=== PATIENT | female | born 1960 | race African-American/Black ===

== ENCOUNTER 2017-09-05 20:22 | Inpatient (IN) | payer OTHER ==
[2017-09-05 21:02] VITALS: BMI 19.8
[2017-09-05] MEDS ORDERED: MELATONIN 5 MG TABLETS PO PRN (22:00)
--- NOTE | 2017-09-05 22:27 | HP ---
CIWA Score - CIWA Score Nausea/Vomitin Muscle Tremors: 4-Moderate,w/Arms Extend Anxiety: 4-Mod. Anxious/Guarded Agitation: 4-Moderately Restless Paroxysmal Sweats: 3 Orientation: 3-Disoriented Date>2 days Tacttile Disturbances: 3-Moderate Itch/Numb/Burn Auditory Disturbances: 1-Very Mild Visual Disturbances: 0-None Headache: 0-None Present CIWA-Ar Total Score: 25 Admission ROS S - HPI Chief Complaint: C/O WITHDRAWAL SX. SEEKING DETOX FOR ALCOHOL DEPENDENCE. Allergies/Adverse Reactions: Allergies Allergy/AdvReac Type Severity Reaction Status Date / Time No Known Allergies Allergy Verified 09/05/17 22:23 History of Present Illness: 57 Y.O. FEMALE WITH LONG HX/O ALCOHOLISM AND CRACK/COCAINE DEPENDENCE HERE FOR DETOX. CLIENT IS KNOWN TO PREVIOUS DETOX PROGRAM. REPORTS LAST ATTEMPT YEARS AGO. REFERRED BY A FRIEND. REPORTS LONGEST CLEAN TIME 8 YEARS. PMHX: EMPHYSEMA, COPD, BACK INJURY PSYCH: SCHIZOPHRENIA, BIPOLAR Exam Limitations: No Limitations - Ebola screening Have you traveled outside of the country in the last 21 days: No (N) Have you had contact with anyone from an Ebola affected area: No Have you been sick,other than usual withdrawal symptoms: No Do you have a fever: No - Review of Systems Constitutional: Chills, Loss of Appetite, Malaise, Night Sweats, Changes in sleep, Unintentional Wgt. Loss EENT: reports: Dental Problems (DENTURES) Respiratory: reports: Shortness of Breath Cardiac: reports: No Symptoms Reported GI: reports: Nausea, Poor Appetite, Poor Fluid Intake : reports: No Symptoms Reported Musculoskeletal: reports: Back Pain Integumentary: reports: No Symptoms Reported Neuro: reports: No Symptoms reported Endocrine: reports: No Symptoms Reported Hematology: reports: No Symptoms Reported Psychiatric: reports: Anxious, Depressed Other Systems: Reviewed and Negative Patient History - Patient Medical History Hx Anemia: No Hx Asthma: No Hx Chronic Obstructive Pulmonary Disease (COPD): Yes (EMPHYSEMA) Hx Cancer: No Hx Cardiac Disorders: No Hx Congestive Heart Failure: No Hx Hypertension: No Hx Hypercholesterolemia: No Hx Pacemaker: No HX Cerebrovascular Accident: No Hx Seizures: No Hx Dementia: No Hx Diabetes: No Hx Gastrointestinal Disorders: No Hx Liver Disease: No Hx Genitourinary Disorders: No Hx Sexually Transmitted Disorders: No Hx Renal Disease (ESRD): No Hx Thyroid Disease: No Hx Human Immunodeficiency Virus (HIV): No Hx Hepatitis C: No Hx Depression: Yes Hx Suicide Attempt: Yes (8 YEARS AGO ATEMPTED TO JUMP OUT THE WINDOW) Hx Bipolar Disorder: Yes (MED MGMT) Hx Schizophrenia: Yes (MED MGMT) - Patient Surgical History Past Surgical History: No - PPD History Previous Implant?: Yes Documented Results: Negative w/o proof Implanted On Prior R Admission?: No PPD to be Administered?: Yes - Reproductive History Patient is a Female of Child Bearing Age (11 -55 yrs old): No [place] [facility] [place] - Smoking Cessation Smoking history: Former smoker Have you smoked in the past 12 months: No Hx Chewing Tobacco Use: No Initiated information on smoking cessation: No - Substance & Tx. History Hx Alcohol Use: Yes Hx Substance Use: Yes Substance Use Type: Alcohol, Cocaine Hx Substance Use Treatment: Yes (DOES NOT RECALL) - Substances Abused VODKA Route: Oral Frequency: Daily Amount used: 1 PINT Age of first use: 13 Date of Last Use: 09/05/17 CRACK/COCAINE Route: Smoking Frequency: Daily Amount used: $200 Age of first use: 54 Date of Last Use: 09/05/17 Family Disease History - Family Disease History Family Disease History: Other: Father (DRUGS/ALCOHOL), Brother (MENTAL HEALTH), Sister (MENTAL HEALTH) Admission Physical Exam S - Vital Signs Vital Signs: Vital Signs - 24 hr 09/05/17 20:59 Temperature 97.8 F Pulse Rate 77 Respiratory 18 Rate Blood Pressure 122/85 - Physical General Appearance: Yes: Appropriately Dressed, Moderate Distress, Tremorous, Irritable HEENTM: Yes: EOMI, Normocephalic, Pharynx Normal, Other (MISSIING TEETH TOP DENTURES) Respiratory: Yes: Chest Non-Tender, No Respiratory Distress, Wheezing (CLEARED WITH COUGH) Neck: Yes: No masses,lesions,Nodules, Supple, Trachea in good position Breast: Yes: Breast Exam Deferred Cardiology: Yes: Regular Rhythm, Regular Rate, S1, S2 Abdominal: Yes: Normal Bowel Sounds, Non Tender, Soft Genitourinary: Yes: Within Normal Limits Back: Yes: Normal Inspection Musculoskeletal: Yes: full range of Motion, Gait Steady Extremities: Yes: Normal Capillary Refill, Normal Range of Motion, Non-Tender, Tremors Neurological: Yes: Alert, Motor Strength 5/5, Disoriented (TO DATE) Integumentary: Yes: Dry, Cold Lymphatic: Yes: Within Normal Limits - Diagnostic (1) Alcohol dependence with uncomplicated withdrawal Current Visit: Yes Status: Acute (2) Cocaine dependence, uncomplicated Current Visit: Yes Status: Chronic (3) COPD (chronic obstructive pulmonary disease) with emphysema Current Visit: Yes Status: Chronic Qualifiers: Emphysema type: unspecified Qualified Code(s): J43.9 - Emphysema, unspecified (4) Former cigarette smoker Current Visit: Yes Status: Suspected (5) Drug-induced mood disorder Current Visit: Yes Status: Suspected Cleared for Admission S - Detox or Rehab [facility] Level of Care: Medically Managed Detox Regimen/Protocol: Librium Claeared for Rehab Admission: No S Breath Alcohol Content Breath Alcohol Content: 0 Urine Pregancy Test - Result Urine Test Results: Negative- NO Line Present Urine Drug Screen - Results Drug Screen Negative: No Urine Drug Screen Results: GUIDO-Cocaine
[2017-09-05] MEDS ORDERED: MAGNESIUM HYDROX 2400MG/30ML ORAL SUSPENSION 30 ML CUP PO PRN (22:33)
[2017-09-05] MEDS ORDERED: NICOTINE POLACRILEX 2 MG GUM BC PRN (22:33)
[2017-09-05] MEDS ORDERED: P-EPHED 60MG/TRIPROLIDI 2.5MG TABLET PO PRN (22:33)
[2017-09-05] MEDS ORDERED: IBUPROFEN 400 MG TABLET (FP) PO PRN (22:33)
[2017-09-05] MEDS ORDERED: MAG HYDROX/AL HYDROX/SIMETH 30 ML UNIT-DOSE CUP PO PRN (22:33)
[2017-09-05] MEDS ORDERED: LOPERAMIDE HCL 2 MG CAPSULE PO PRN (22:33)
[2017-09-05] MEDS ORDERED: guaiFENesin/D-METHORPHAN HB 10 ML UNIT-DOSE CUPS PO PRN (22:33)
[2017-09-05] MEDS ORDERED: MAGNESIUM CITRATE 300 ML BOTTLE PO PRN (22:33)
[2017-09-05] MEDS ORDERED: MENTHOL/PHENOL 1 EACH UD MM PRN (22:33)
[2017-09-05] MEDS ORDERED: chlordiazePOXIDE HCL 25 MG CAPSULE PO PRN (22:33)
[2017-09-05] MEDS ORDERED: ACETAMINOPHEN 325 MG TABLET (FP) PO PRN (22:33)
[2017-09-05] MEDS ORDERED: hydrOXYzine PAMOATE 50 MG CAPSULE (FP) PO PRN (22:33)
[2017-09-05] MEDS ORDERED: ALBUTEROL SO4 18 GM HFA INHALER IH PRN (22:37)
[2017-09-05] MEDS ORDERED: ALBUTEROL SO4 2.5/IPRATROPIUM 0.5 INH SOL 3 ML VIAL.NEB. NEB PRN (22:37)
[2017-09-06] MEDS: chlordiazePOXIDE HCL 25 MG CAPSULE PO SCH ×5 (04:40→22:16)
[2017-09-06] MEDS: BUDESONIDE/FORMETEROL FUMARATE 80/4.5 mcg INHALER IH SCH ×3 (04:40→22:15)
[2017-09-06 06:56] LABS: URINE APPEARANCE CLEAR; URINE BILIRUBIN NEGATIVE (<2.0 mg/dL); URINE COLOR LTYELLOW; URINE GLUCOSE (UA) NEGATIVE (NEGATIVE); URINE KETONE NEGATIVE (NEGATIVE); URINE LEUK ESTERASE NEGATIVE (NEGATIVE); URINE NITRITE NEGATIVE (NEGATIVE); URINE PROTEIN NEGATIVE (NEGATIVE); URINE UROBILINOGEN NEGATIVE mg/dL (0.2-1.0)
--- NOTE | 2017-09-06 09:56 | CONSULT ---
[facility] Psychiatric Consult - Data Date of interview: 09/06/17 Admission source: [facility] Identifying data: This is 57 years old female, single, living alone , on SSI benefits, with psychiatric hospitalization history, history of Schizophrenia, Bipolr Disorder, long history of Alcohol,and Crack dependence, currently intoxicate with withdrawal symptoms seeking for detox. Substance Abuse History: - Smoking Cessation. Smoking history: Former smoker. Have you smoked in the past 12 months: No. Hx Chewing Tobacco Use: No. Initiated information on smoking cessation: No. - Substance & Tx. History. Hx Alcohol Use: Yes. Hx Substance Use: Yes. Substance Use Type: Alcohol, Cocaine. Hx Substance Use Treatment: Yes (DOES NOT RECALL). - Substances Abused. VODKA. Route: Oral. Frequency: Daily. Amount used: 1 PINT. Age of first use: 13. Date of Last Use: 09/05/17. CRACK/COCAINE. Route: Smoking. Frequency: Daily. Amount used: $200. Age of first use: 54. Date of Last Use: 09/05/17 Medical History: COPD Psychiatric History: Ptient reports history of Schizophrenia with most recent psychiatric hospitalization at [facility] 2 weeks ago, reports taking prior to admission Risperdal IM injections with most recent injection last week , patient is poor historian, risperdal dosage is not confirmed. Physical/Sexual Abuse/Trauma History: Denies Additional Comment: Haldol 1mg po prn q4 for psychosis and agitation Mental Status Exam - Mental Status Exam Alert and Oriented to: Person Cognitive Function: Good Patient Appearance: Unkempt Mood: Suspicious, Apprehensive Affect: Labile Patient Behavior: Cooperative Speech Pattern: Slurred Voice Loudness: Mildly Soft/Quiet Thought Process: Goal Oriented Thought Disorder: Being Controlled Hallucinations: Denies Suicidal Ideation: Denies Homicidal Ideation: Denies Insight/Judgement: Fair Sleep: Difficulty falling asleep Appetite: Weight loss Muscle strength/Tone: Mild Hypotonicity Gait/Station: Shuffling Additional Comments: Haldol 1mg po prn q4 for psychosis and agitation Psychiatric Findings - Problem List ([place] 1, 2,3) (1) Schizophrenia Current Visit: Yes Status: Chronic (2) Alcohol dependence with uncomplicated withdrawal Current Visit: Yes Status: Acute (3) Cocaine dependence, uncomplicated Current Visit: Yes Status: Chronic (4) Drug-induced mood disorder Current Visit: Yes Status: Suspected - Initial Treatment Plan Initial Treatment Plan: Haldol 1mg po prn q4 for psychosis and agitation
[2017-09-06] MEDS: PRENATAL VITAMINS W/ FOLIC ACID TABLET (FP) PO SCH (10:08)
[2017-09-06 10:42] LABS: HEMATOCRIT 37.6 % (32.4-45.2); HEMOGLOBIN 12.5 GM/dL (10.7-15.3); MCH 32.8 pg (25.7-33.7); MCHC 33.2 g/dl (32.0-36.0); MEAN CELL VOLUME 98.9 fl (80-96); MEAN PLT VOLUME 8.6 fl (7.5-11.1); PLATELET COUNT 265 K/MM3 (134-434); RDW 14.3 % (11.6-15.6); WHITE BLOOD COUNT 9.2 K/mm3 (4.0-10.0)
[2017-09-06 10:49] LABS: CHLORIDE 109 mmol/L (98-107); SODIUM 143 mmol/L (136-145)
--- NOTE | 2017-09-06 11:16 | PN ---
S CIWA - CIWA Score Nausea/Vomitin-Mild Nausea/No Vomiting Muscle Tremors: 4-Moderate,w/Arms Extend Anxiety: 4-Mod. Anxious/Guarded Agitation: 4-Moderately Restless Paroxysmal Sweats: 1-Minimal Palms Moist Orientation: 1-Uncertain about Date Tacttile Disturbances: 2-Mild Itch/Numbness/Burn Auditory Disturbances: 0-None Visual Disturbances: 0-None Headache: 1-Very Mild CIWA-Ar Total Score: 18 BHS Progress Note (SOAP) Subjective: disoriented to time, sweat, tremor, anxiety, restlessness, trouble sleep at night Objective: 09/06/17 11:16 Vital Signs Temperature 97.9 F 09/06/17 10:18 Pulse Rate 69 09/06/17 10:18 Respiratory Rate 18 09/06/17 10:18 Blood Pressure 98/63 09/06/17 10:18 O2 Sat by Pulse Oximetry (%) Laboratory Tests 09/05/17 09/06/17 09/06/17 23:26 07:30 07:30 WBC 9.2 RBC 3.80 Hgb 12.5 Hct 37.6 MCV 98.9 H MCH 32.8 MCHC 33.2 RDW 14.3 Plt Count 265 MPV 8.6 Sodium 143 Potassium 4.0 Chloride 109 H Urine Color Ltyellow Urine Appearance Clear Urine pH 8.0 Ur Specific [place] 1.018 Urine Protein Negative Urine Glucose (UA) Negative Urine Ketones Negative Urine Blood Negative Urine Nitrite Negative Urine Bilirubin Negative Urine Urobilinogen Negative Ur Leukocyte Esterase Negative lab noted Assessment: 09/06/17 11:16 withdrawal sx 09/06/17 11:17 bipolar disorder Plan: continue detox psychiatric consultation aracely qureshi
[2017-09-06 11:21] LABS: ALBUMIN 3.4 g/dl (3.4-5.0); ALK PHOS 61 U/L (45-117); ANION GAP 7 (8-16); BILIRUBIN,TOTAL 0.6 mg/dL (0.2-1.0); BLOOD UREA NITROGEN 10 mg/dL (7-18); CALCIUM 8.8 mg/dL (8.5-10.1); CO2 27 mmol/L (21-32); CREATININE 0.9 mg/dL (0.55-1.02); GLUCOSE,RANDOM 82 mg/dL (74-106); SGOT/AST 13 U/L (15-37); SGPT/ALT 14 U/L (12-78); TOT PROT 6.8 g/dl (6.4-8.2)
--- NOTE | 2017-09-06 13:28 | EKG ---
Test Reason : Blood Pressure : / mmHG Vent. Rate : 072 BPM Atrial Rate : 072 BPM P-R Int : 168 ms QRS Dur : 086 ms QT Int : 408 ms P-R-T Axes : 060 089 082 degrees QTc Int : 446 ms NORMAL SINUS RHYTHM NORMAL ECG NO PREVIOUS ECGS AVAILABLE Confirmed by BEL HANSON, CRUZITO ([id number]) on 09/06/2017 1:27:36 PM Referred By: Confirmed By:CRUZITO STAPLES MD
[2017-09-06] MEDS: THIAMINE HCL 100 MG TABLET (FP) PO SCH (22:16)
[2017-09-06] MEDS: HALOPERIDOL 1 MG TABLET (FP) PO PRN (22:16)
[2017-09-07] MEDS: chlordiazePOXIDE HCL 25 MG CAPSULE PO SCH ×3 (05:58→17:36)
--- NOTE | 2017-09-07 10:12 | PN ---
[facility] CIWA - CIWA Score Nausea/Vomitin-Mild Nausea/No Vomiting Muscle Tremors: 4-Moderate,w/Arms Extend Anxiety: 4-Mod. Anxious/Guarded Agitation: 3 Paroxysmal Sweats: 1-Minimal Palms Moist Orientation: 0-Oriented Tacttile Disturbances: 1-Very Mild Itch/Numbness Auditory Disturbances: 0-None Visual Disturbances: 0-None Headache: 0-None Present CIWA-Ar Total Score: 14 BHS Progress Note (SOAP) Subjective: sweat tremor constipation and minimum food intake Objective: 09/07/17 10:16 Vital Signs Temperature 97.9 F 09/07/17 07:51 Pulse Rate 69 09/07/17 07:51 Respiratory Rate 18 09/07/17 07:51 Blood Pressure 144/87 09/07/17 07:51 O2 Sat by Pulse Oximetry (%) Laboratory Last Values WBC 9.2 K/mm3 (4.0-10.0) 09/06/17 07:30 RBC 3.80 M/mm3 (3.60-5.2) 09/06/17 07:30 Hgb 12.5 GM/dL (10.7-15.3) 09/06/17 07:30 Hct 37.6 % (32.4-45.2) 09/06/17 07:30 MCV 98.9 fl (80-96) H 09/06/17 07:30 MCH 32.8 pg (25.7-33.7) 09/06/17 07:30 MCHC 33.2 g/dl (32.0-36.0) 09/06/17 07:30 RDW 14.3 % (11.6-15.6) 09/06/17 07:30 Plt Count 265 K/MM3 (134-434) 09/06/17 07:30 MPV 8.6 fl (7.5-11.1) 09/06/17 07:30 Sodium 143 mmol/L (136-145) 09/06/17 07:30 Potassium 4.0 mmol/L (3.5-5.1) 09/06/17 07:30 Chloride 109 mmol/L (98-107) H 09/06/17 07:30 Carbon Dioxide 27 mmol/L (21-32) 09/06/17 07:30 Anion Gap 7 (8-16) L 09/06/17 07:30 BUN 10 mg/dL (7-18) 09/06/17 07:30 Creatinine 0.9 mg/dL (0.55-1.02) 09/06/17 07:30 Creat Clearance w eGFR > 60 (>60) 09/06/17 07:30 Random Glucose 82 mg/dL (74-106) 09/06/17 07:30 Calcium 8.8 mg/dL (8.5-10.1) 09/06/17 07:30 Total Bilirubin 0.6 mg/dL (0.2-1.0) 09/06/17 07:30 AST 13 U/L (15-37) L 09/06/17 07:30 ALT 14 U/L (12-78) 09/06/17 07:30 Alkaline Phosphatase 61 U/L (45-117) 09/06/17 07:30 Total Protein 6.8 g/dl (6.4-8.2) 09/06/17 07:30 Albumin 3.4 g/dl (3.4-5.0) 09/06/17 07:30 Urine Color Ltyellow 09/05/17 23:26 lab not Urine Appearance Clear 09/05/17 23: Urine pH 8.0 (5.0-8.0) 09/05/17 23:26 Ur Specific [place] 1.018 (1.001-1.035) 09/05/17 23:26 Urine Protein Negative (NEGATIVE) 09/05/17 23:26 Urine Glucose (UA) Negative (NEGATIVE) 09/05/17 23:26 Urine Ketones Negative (NEGATIVE) 09/05/17 23: Urine Blood Negative (NEGATIVE) 09/05/17 23:26 Urine Nitrite Negative (NEGATIVE) 09/05/17 23: Urine Bilirubin Negative (<2.0 mg/dL) 09/05/17 23: Urine Urobilinogen Negative mg/dL (0.2-1.0) 09/05/17 23:26 Ur Leukocyte Esterase Negative (NEGATIVE) 09/05/17 23: RPR Titer Nonreactive (NONREACTIVE) 09/06/17 07:30 Hep C Ab Diagnostic <0.1 s/co ratio (0.0-0.9) 09/06/17 07:30 Liver Fibrosis Interp (.) 09/06/17 07:30 HIV 1&2 Antibody Screen Negative 09/06/17 07:30 HIV P24 Antigen Negative 09/06/17 07:30 lab noted Assessment: 09/07/17 10:17 withdrawal sx constipation nutrition Plan: continue detox colace 100 mg po daily encourage MOM as needed ensure bid
[2017-09-07] MEDS: BUDESONIDE/FORMETEROL FUMARATE 80/4.5 mcg INHALER IH SCH ×2 (10:19→22:10)
[2017-09-07] MEDS: PRENATAL VITAMINS W/ FOLIC ACID TABLET (FP) PO SCH (10:19)
[2017-09-07] MEDS: DOCUSATE SODIUM 100 MG CAPSULE (FP) PO SCH (11:11)
[2017-09-07] MEDS: HALOPERIDOL 1 MG TABLET (FP) PO PRN (22:11)
[2017-09-07] MEDS: THIAMINE HCL 100 MG TABLET (FP) PO SCH (22:11)
[2017-09-07] MEDS: chlordiazePOXIDE 5 MG CAPSULE PO SCH (22:11)
[2017-09-08] MEDS: chlordiazePOXIDE 5 MG CAPSULE PO SCH ×2 (06:11→10:18)
[2017-09-08 09:18] VITALS: BP 151/90; PULSE 78; TEMP 98.1
[2017-09-08] MEDS: BUDESONIDE/FORMETEROL FUMARATE 80/4.5 mcg INHALER IH SCH (10:18)
[2017-09-08] MEDS: DOCUSATE SODIUM 100 MG CAPSULE (FP) PO SCH (10:18)
[2017-09-08] MEDS: PRENATAL VITAMINS W/ FOLIC ACID TABLET (FP) PO SCH (10:18)
[2017-09-08] MEDS ORDERED: cloNIDine HCL 0.1 MG TABLET PO PRN (11:16)
--- NOTE | 2017-09-08 11:17 | DS ---
[facility] Detox Discharge Summary Admission Date: 09/05/17 Discharge Date: 09/08/17 - History Present History: Alcohol Dependence Additional Comments: 57 years old female admitted 09/05/17 for alcohol withdrawal sx patient denies alcohol withdrawal sx and wants to go to aftercare for recovery today case discussed with counselor that a multidiscipline team approach that [facility] recovery facility known the patient's history and is willing to work with the patient's mental and physical and addiction issues patient is alert oriented x 3 no acute distress [facility] provide transportation around 1 pm today - Physical Exam Results Vital Signs: Vital Signs Temperature 98.1 F 09/08/17 09:18 Pulse Rate 78 09/08/17 09:18 Respiratory Rate 16 09/08/17 09:18 Blood Pressure 151/90 09/08/17 09:18 O2 Sat by Pulse Oximetry (%) Pertinent Admission Physical Exam Findings: alcohol withdrawal sx Vital Signs Temperature 98.1 F 09/08/17 09:18 Pulse Rate 78 09/08/17 09:18 Respiratory Rate 16 09/08/17 09:18 Blood Pressure 151/90 09/08/17 09:18 O2 Sat by Pulse Oximetry (%) Laboratory Last Values WBC 9.2 K/mm3 (4.0-10.0) 09/06/17 07:30 RBC 3.80 M/mm3 (3.60-5.2) 09/06/17 07:30 Hgb 12.5 GM/dL (10.7-15.3) 09/06/17 07:30 Hct 37.6 % (32.4-45.2) 09/06/17 07:30 MCV 98.9 fl (80-96) H 09/06/17 07:30 MCH 32.8 pg (25.7-33.7) 09/06/17 07:30 MCHC 33.2 g/dl (32.0-36.0) 09/06/17 07:30 RDW 14.3 % (11.6-15.6) 09/06/17 07:30 Plt Count 265 K/MM3 (134-434) 09/06/17 07:30 MPV 8.6 fl (7.5-11.1) 09/06/17 07:30 Sodium 143 mmol/L (136-145) 09/06/17 07:30 Potassium 4.0 mmol/L (3.5-5.1) 09/06/17 07:30 Chloride 109 mmol/L (98-107) H 09/06/17 07:30 Carbon Dioxide 27 mmol/L (21-32) 09/06/17 07:30 Anion Gap 7 (8-16) L 09/06/17 07:30 BUN 10 mg/dL (7-18) 09/06/17 07:30 Creatinine 0.9 mg/dL (0.55-1.02) 09/06/17 07:30 Creat Clearance w eGFR > 60 (>60) 09/06/17 07:30 Random Glucose 82 mg/dL (74-106) 09/06/17 07: Calcium 8.8 mg/dL (8.5-10.1) 09/06/17 07:30 Total Bilirubin 0.6 mg/dL (0.2-1.0) 09/06/17 07:30 AST 13 U/L (15-37) L 09/06/17 07:30 ALT 14 U/L (12-78) 09/06/17 07:30 Alkaline Phosphatase 61 U/L (45-117) 09/06/17 07:30 Total Protein 6.8 g/dl (6.4-8.2) 09/06/17 07:30 Albumin 3.4 g/dl (3.4-5.0) 09/06/17 07:30 Urine Color Ltyellow 09/05/17 23:26 Urine Appearance Clear 09/05/17 23:26 Urine pH 8.0 (5.0-8.0) 09/05/17 23:26 Ur Specific [place] 1.018 (1.001-1.035) 09/05/17 23:26 Urine Protein Negative (NEGATIVE) 09/05/17 23: Urine Glucose (UA) Negative (NEGATIVE) 09/05/17 23: Urine Ketones Negative (NEGATIVE) 09/05/17 23: Urine Blood Negative (NEGATIVE) 09/05/17 23: Urine Nitrite Negative (NEGATIVE) 09/05/17 23: Urine Bilirubin Negative (<2.0 mg/dL) 09/05/17 23: Urine Urobilinogen Negative mg/dL (0.2-1.0) 05/29/18 23:26 Ur Leukocyte Esterase Negative (NEGATIVE) 09/05/17 23:26 RPR Titer Nonreactive (NONREACTIVE) 09/06/17 07:30 Hep C Ab Diagnostic <0.1 s/co ratio (0.0-0.9) 09/06/17 07:30 Liver Fibrosis Interp (.) 09/06/17 07:30 HIV 1&2 Antibody Screen Negative 09/06/17 07:30 HIV P24 Antigen Negative 09/06/17 07:30 lab noted - Treatment Hospital Course: Detox Protocol Followed, Detoxed Safely, Responded well, Discharged Condition Good, Rehab Referral Accepted Patient has Accepted a Rehab Referral to: [facility] - Medication Discharge Medications: Ambulatory Orders Albuterol Sulfate Inhaler - [Ventolin HFA Inhaler -] 2 puff IH PRN 09/06/17 Budesonide/Formeterol Fumarate [SYMBICORT 80/4.5mcg -] 1 puff IH BID 09/06/17 Divalproex [Depakote -] 500 mg PO BID 09/06/17 - Diagnosis (1) Alcohol dependence with uncomplicated withdrawal Current Visit: Yes Status: Acute (2) COPD (chronic obstructive pulmonary disease) with emphysema Current Visit: Yes Status: Chronic Qualifiers: Emphysema type: unspecified Qualified Code(s): J43.9 - Emphysema, unspecified (3) Schizophrenia Current Visit: Yes Status: Suspected Qualifiers: Schizophrenia type: unspecified Qualified Code(s): F20.9 - Schizophrenia, unspecified - AMA Did Patient Leave Against Medical Advice: No
[2017-09-08] MEDS ORDERED: chlordiazePOXIDE HCL 10 MG CAPSULE PO SCH (23:00)
== END 2017-09-08 12:03 | disposition home or self-care (01) | DRG 774 ==
LOC: YASAS 20:22 → Y6N 22:49
PROVIDERS: ADMIT Surgery; ATTEND Surgery
PROC: HZ2ZZZZ Detoxification Services for Substance Abuse Treatment (ICD-10-PCS; principal; 2017-09-05)
DX: F10.230 Alcohol dependence with withdrawal, uncomplicated (principal); F14.20 Cocaine dependence, uncomplicated; F20.9 Schizophrenia, unspecified; F19.24 Other psychoactive substance dependence with psychoactive substance-induced mood disorder; F31.9 Bipolar disorder, unspecified; J43.8 Other emphysema; Z91.5 Personal history of self-harm
CPT/HCPCS: 36415; 80053; 81003; 85027; 86593; 87389; 93005; 93010

== ENCOUNTER 2019-11-08 12:57 | Inpatient (IN) | payer OTHER ==
--- NOTE | 2019-11-08 13:22 | BHS.RME ---
Substance Use & Tx History - Substance Use History Alcohol Substance amount: 1 pint vodka Frequency of use: Daily Substance route: Oral Date of Last Use: 11/08/19 Cocaine-Crack Substance amount: $50 Frequency of use: Daily Substance route: Smoking Date of Last Use: 11/07/19 Nicotine Substance amount: 1 pack Frequency of use: Daily Substance route: Smoking Date of Last Use: 11/08/19 Physical/Psych/Mental Status - Behavior General Behavior: Increased activity (restlessness, agitation) Eye Contact: Normal - Cooperativeness Cooperativeness: Cooperative - Thinking Thought Processes: Tight, Logical, Goal Directed - Physical Health Problems Is patient presently having any pain?: No Does patient presently have any injuries (include location): No Does patient currently have a fever: No Is patient : No CIWA Nausea/Vomitin Muscle Tremors: 3 Anxiety: 3 Agitation: 3 Paroxysmal Sweats: 4-Forehead w/Sweat Beads Orientation: 0-Oriented Tacttile Disturbances: 0-None Auditory Disturbances: 0-None Visual Disturbances: 0-None Headache: 0-None Present CIWA-Ar Total Score: 15
--- NOTE | 2019-11-08 15:00 | HP ---
CIWA Score Nausea/Vomitin Muscle Tremors: 3 Anxiety: 3 Agitation: 3 Paroxysmal Sweats: 4-Forehead w/Sweat Beads Orientation: 0-Oriented Tacttile Disturbances: 0-None Auditory Disturbances: 0-None Visual Disturbances: 0-None Headache: 0-None Present CIWA-Ar Total Score: 15 - Admission Criteria OASAS Guidelines: Admission for Medically Managed Detox: Requires at least one of the followin. CIWA greater than 12 2. Seizures within the past 24 hours 3. Delirium tremens within the past 24 hours 4. Hallucinations within the past 24 hours 5. Acute intervention needed for co occurring medical disorder 6. Acute intervention needed for co occurring psychiatric disorder 7. Severe withdrawal that cannot be handled at a lower level of care (continued vomiting, continued diarrhea, abnormal vital signs) requiring intravenous medication and/or fluids 8. Admitting History and Physical - Admission Chief Complaint: Patient is a 59 year old female with history of COPD, bipolar disorder, alcohol use disorder, cocaine use disorder, and nicotine dependence, bipolar disorder, presents for detox. History of Present Illness: Patient is a 59 year old female with history of COPD, bipolar disorder, alcohol use disorder, cocaine use disorder, and nicotine dependence, bipolar disorder, presents for detox. Last detox here was completed on 09/08/2017. PMH: COPD, asthma, chronic low back pain PSH: appendectomy, c- section, laparotomy, cholecystectomy Psych: bipolar disorder Social: lives in [facility], alone. Legal: Denies - Substance Use History Alcohol Substance amount: 1 pint vodka (admits to eye-wood inspector. endorses blackout last week, seizure one year ago). Frequency of use: Daily Substance route: Oral Date of Last Use: 11/08/19 (first use at 14 years old) Cocaine-Crack Substance amount: $50 Frequency of use: Daily Substance route: Smoking Date of Last Use: 11/07/19 (first use at 22 years old) Nicotine Substance amount: 1 pack Frequency of use: Daily Substance route: Smoking Date of Last Use: 11/08/19 (first use at 16 years old) History Source: Patient Limitations to Obtaining History: No Limitations - Past Medical History ...LMP: 07/18/12 - Smoking History Smoking history: Former smoker Have you smoked in the past 12 months: No - Alcohol/Substance Use Hx Alcohol Use: Yes Admission [facility] Allergies/Adverse Reactions: Allergies Allergy/AdvReac Type Severity Reaction Status Date / Time iodine Allergy Severe Difficulty Verified 09/06/17 17:09 Breathing Penicillins Allergy Severe Swelling Verified 09/06/17 17:09 codeine Allergy Severe Nausea Uncoded 09/06/17 17:09 Exam Limitations: No Limitations - Ebola screening Have you traveled outside of the country in the last 21 days: No Have you had contact with anyone from an Ebola affected area: No Have you been sick,other than usual withdrawal symptoms: No - Review of Systems Constitutional: No Symptoms Reported EENT: denies: Recent change in vision, Tinnitus Respiratory: denies: Cough, Shortness of Breath Cardiac: denies: Chest Pain, Lightheadedness, Palpitations GI: denies: Nausea, Vomiting, Abdominal cramping : denies: Burning, Dysuria, Discharge Musculoskeletal: denies: Back Pain, Muscle Pain Integumentary: denies: Pruritus, Rash Neuro: reports: Weakness. denies: Numbness, Paresthesia Hematology: denies: Blood Clots, Easy Bleeding Psychiatric: reports: Agitated (denies suicudal/ homicidal ideation) Patient History - Patient Medical History Hx Anemia: No Hx Asthma: No Hx Chronic Obstructive Pulmonary Disease (COPD): No Hx Cancer: No Hx Cardiac Disorders: No Hx Congestive Heart Failure: No Hx Hypertension: No Hx Hypercholesterolemia: No Hx Pacemaker: No HX Cerebrovascular Accident: No Hx Seizures: No Hx Dementia: No Hx Diabetes: No Hx Gastrointestinal Disorders: No Hx Liver Disease: No Hx Genitourinary Disorders: No Hx Sexually Transmitted Disorders: No Hx Renal Disease (ESRD): No Hx Thyroid Disease: No Hx Human Immunodeficiency Virus (HIV): No Hx Hepatitis C: No Hx Depression: No Hx Suicide Attempt: No Hx Bipolar Disorder: Yes ([facility]) Hx Schizophrenia: Yes ([facility],a wk ago) - Patient Surgical History Past Surgical History: No Hx Neurologic Surgery: No Hx Cataract Extraction: No Hx Cardiac Surgery: No Hx Lung Surgery: No Hx Breast Surgery: No Hx Breast Biopsy: No Hx Abdominal Surgery: No Hx Appendectomy: No Hx Cholecystectomy: No Hx Genitourinary Surgery: No Hx Section: No Hx Orthopedic Surgery: No Anesthesia Reaction: No - PPD History Date: 09/08/17 - Reproductive History Last Menstrual Period: 07/18/12 - Smoking Cessation Smoking history: Current every day smoker Have you smoked in the past 12 months: Yes Aproximately how many cigarettes per day: 20 Hx Chewing Tobacco Use: No Initiated information on smoking cessation: Yes 'Breaking Loose' booklet given: 11/08/19 - Substances abused Alcohol Substance route: Oral Frequency: Daily Amount used: 1 PINT VODKA Age of first use: 14 Date of last use: 11/08/19 Crack Substance route: Smoking Frequency: Daily Amount used: $50 Age of first use: 22 Date of last use: 11/07/[address] [facility] - Physical General Appearance: Yes: Nourished, Mild Distress, Irritable HEENTM: Yes: Normocephalic, ISACC Respiratory: Yes: Lungs Clear, Normal Breath Sounds, No Respiratory Distress, No Accessory Muscle Use Neck: Yes: Supple Breast: Yes: Breast Exam Deferred Cardiology: Yes: Regular Rhythm, Regular Rate, S1, S2 Abdominal: Yes: Non Tender, Flat, Soft Back: Yes: Within Normal Limits Musculoskeletal: Yes: Within Normal Limits, full range of Motion Extremities: Yes: Within Normal Limits, Normal Range of Motion Neurological: Yes: carbon grinder II-XII NML intact, Motor Strength 5/5 Integumentary: Yes: Dry, Warm - Diagnostic (1) Nicotine dependence Current Visit: Yes Status: Acute (2) Alcohol dependence with uncomplicated withdrawal Current Visit: Yes Status: Acute (3) COPD (chronic obstructive pulmonary disease) with emphysema Current Visit: No Status: Chronic Qualifiers: Emphysema type: unspecified Qualified Code(s): J43.9 - Emphysema, unspecified (4) Cocaine dependence, uncomplicated Current Visit: Yes Status: Chronic (5) Drug-induced mood disorder Current Visit: Yes Status: Suspected Cleared for Admission [facility] - Detox or Rehab [facility] Level of Care: Medically Managed Detox Regimen/Protocol: Librium Claeared for Rehab Admission: No Screened but not Admitted - Documentation of Visit Screened but not Admitted: No Breathalyzer - Breathalyzer Breathalyzer: 0 Urine Drug Screen - Test Device Lot number: [id number] Expiration date: 11/11/20 - Control Is test valid?: Yes - Results Drug screen NEGATIVE: No Urine drug screen results: GUIDO-Cocaine Inpatient Rehab Admission - Rehab Decision to Admit Inpatient rehab admission?: No
[2019-11-08] MEDS ORDERED: ONDANSETRON *ODT* 4 MG TABLET SL PRN (15:14)
[2019-11-08] MEDS ORDERED: MENTHOL/PHENOL 1 EACH UD MM PRN (15:14)
[2019-11-08] MEDS ORDERED: BISMUTH SUBSALICYLATE 262 MG/15 ML BTL PO PRN (15:14)
[2019-11-08] MEDS ORDERED: IBUPROFEN 400 MG TABLET (FP) PO PRN (15:14)
[2019-11-08] MEDS ORDERED: MAG HYDROX/AL HYDROX/SIMETH 30 ML UNIT-DOSE CUP PO PRN (15:14)
[2019-11-08] MEDS ORDERED: NICOTINE POLACRILEX 2 MG GUM BUC PRN (15:14)
[2019-11-08] MEDS ORDERED: chlordiazePOXIDE HCL 25 MG CAPSULE PO PRN (15:14)
[2019-11-08] MEDS ORDERED: MAGNESIUM CITRATE 300 ML BOTTLE PO PRN (15:14)
[2019-11-08] MEDS ORDERED: ACETAMINOPHEN 325 MG TABLET (FP) PO PRN ×2 (15:14)
[2019-11-08] MEDS ORDERED: METHOCARBAMOL 500 MG TABLET PO PRN (15:14)
[2019-11-08] MEDS ORDERED: ALBUTEROL SO4 HFA INHALER IH SCH (15:30)
[2019-11-08 15:32] VITALS: BMI 19.7
[2019-11-08] MEDS ORDERED: hydrOXYzine PAMOATE 25 MG CAPSULE (FP) PO PRN (15:41)
--- NOTE | 2019-11-08 15:50 | PN ---
Teaching Attending Note Name of Resident: Eliazar Sams ATTENDING PHYSICIAN STATEMENT I saw and evaluated the patient. I reviewed the resident's note and discussed the case with the resident. I agree with the resident's findings and plan as documented. SUBJECTIVE: OBJECTIVE: ASSESSMENT AND PLAN: Pt is a 59 yo being admitted to [facility] for alcohol and cocaine use disorder. PLAN: Librium protocol
[2019-11-08] MEDS ORDERED: MASKS NR ONE (17:18)
[2019-11-08] MEDS: chlordiazePOXIDE HCL 25 MG CAPSULE PO SCH ×2 (17:20→22:05)
[2019-11-08] MEDS: NICOTINE 21 MG/24 HOURS TOPICAL PATCH TD SCH (17:20)
[2019-11-08] MEDS ORDERED: hydrOXYzine PAMOATE 25 MG CAPSULE (FP) PO SCH (18:00)
[2019-11-08] MEDS: MELATONIN 5 MG TABLETS PO SCH (22:03)
[2019-11-08] MEDS: BUDESONIDE/FORMETEROL FUMARATE 80/4.5 mcg INHALER IH SCH (22:03)
[2019-11-08] MEDS: THIAMINE HCL 100 MG TABLET (FP) PO SCH (22:04)
[2019-11-08] MEDS: MONTELUKAST NA 10 MG TABLET PO SCH (22:04)
[2019-11-08] MEDS: CHOLECALCIFEROL (VIT D3) 400 UNIT (10 MCG) TABLET PO SCH (22:05)
[2019-11-09] MEDS: chlordiazePOXIDE HCL 25 MG CAPSULE PO SCH ×4 (05:36→22:15)
[2019-11-09] MEDS ORDERED: PATIENT'S OWN MEDICATION (NON-FORMULARY) (Tiotropium Bromide [Spiriva] 1 INH) PO SCH (10:00)
[2019-11-09] MEDS: PANTOPRAZOLE 20 MG TABLET PO SCH (10:38)
[2019-11-09] MEDS: PRENATAL VITAMINS W/ FOLIC ACID TABLET (FP) PO SCH (10:38)
[2019-11-09] MEDS: BUDESONIDE/FORMETEROL FUMARATE 80/4.5 mcg INHALER IH SCH ×2 (10:38→22:15)
[2019-11-09] MEDS: TIOTROPIUM BROMIDE 2.5 MCG (SPIRIVA) RESPIMAT INHALER IH SCH (10:38)
[2019-11-09] MEDS: CHOLECALCIFEROL (VIT D3) 400 UNIT (10 MCG) TABLET PO SCH ×2 (10:38→22:15)
[2019-11-09] MEDS: NICOTINE 21 MG/24 HOURS TOPICAL PATCH TD SCH (10:39)
[2019-11-09 10:53] LABS: HEMATOCRIT 39.3 % (32.4-45.2); HEMOGLOBIN 13.2 GM/dL (10.7-15.3); MCH 34.1 pg (25.7-33.7); MCHC 33.5 g/dl (32.0-36.0); MEAN CELL VOLUME 101.7 fl (80-96); PLATELET COUNT 228 K/MM3 (134-434); RBC 3.86 M/mm3 (3.60-5.2); WHITE BLOOD COUNT 7.1 K/mm3 (4.0-10.0)
[2019-11-09 13:07] LABS: ALBUMIN 3.1 g/dl (3.4-5.0); BILIRUBIN,TOTAL 0.5 mg/dL (0.2-1); BLOOD UREA NITROGEN 10.5 mg/dL (7-18); CALCIUM 9.2 mg/dL (8.5-10.1); CREATININE 0.8 mg/dL (0.55-1.3); TOT PROT 6.5 g/dl (6.4-8.2)
--- NOTE | 2019-11-09 14:44 | CONSULT ---
[facility] Psychiatric Consult - Data Date of interview: 11/09/19 Admission source: [facility] Identifying data: Revisit to [facility] and admission to [facility] for this 59 y/o AA female self-referred for detoxification treatment. JANNETH issues : alcohol, crack/cocaine, nicotine. Patient is , a mother of three, domiciled, unemployed and supported on SSI benefits. Substance Abuse History: Discussed with the patient. JANNETH profile as follows : Smoking history: Current every day smoker. Have you smoked in the past 12 months: Yes. Aproximately how many cigarettes per day: 20. Hx Chewing Tobacco Use: No. Initiated information on smoking cessation: Yes. 'Breaking Loose' booklet given: 11/08/19. - Substances abused. Alcohol. Substance route: Oral. Frequency: Daily. Amount used: 1 PINT VODKA. Age of first use: 14. Date of last use: 11/08/19. Crack. Substance route: Smoking. Frequency: Daily. Amount used: $50. Age of first use: 22. Date of last use: 11/07/19 Medical History: Medical profile is remarkable for emphysema, GERD, COPD, bronchial asthma, chronic lumbar pain and history of surgeries (appendectomy + sections + laparotomy + cholecystectomy). Psychiatric History: Patient endorses history of multiple psychiatric hospitalizations (mostly at institutions located in [place], [place] : [facility], [facility], [facility]). Diagnosed with : schizophrenia and bipolar disorder." Medications reported by the patient consist of depakote + monthly injections of " risperdal 117 mg " (last injection : 10/25/19, as per self-report). Ms Perez denies history of suicide attempts. Physical/Sexual Abuse/Trauma History: Not discussed : patient declines. Additional Comment: Urine drug screen results: GUIDO-Cocaine. Noted. Mental Status Exam - Mental Status Exam Alert and Oriented to: Time, Place, Person Cognitive Function: Good Patient Appearance: Unkempt, Disheveled Mood: Nervous, Withdrawn, Irritable Affect: Mood Congruent, Blunted Patient Behavior: Fatigued, Appropriate, Cooperative (superfcially cooperative) Speech Pattern: Clear, Appropriate Voice Loudness: Normal Thought Process: Goal Oriented Thought Disorder: Bizarre Hallucinations: Denies Suicidal Ideation: Denies Homicidal Ideation: Denies Insight/Judgement: Poor Sleep: Well Appetite: Good Gait/Station: Other (not observed; in bed for duration of interview) Psychiatric Findings - Problem List ([place] 1, 2,3) (1) Alcohol dependence with uncomplicated withdrawal Current Visit: Yes Status: Acute (2) Cocaine dependence, uncomplicated Current Visit: Yes Status: Chronic (3) Nicotine dependence Current Visit: Yes Status: Chronic (4) Drug-induced mood disorder Current Visit: Yes Status: Chronic (5) Schizoaffective disorder Current Visit: Yes Status: Suspected - Initial Treatment Plan Initial Treatment Plan: Psychoeducation. Sleep hygiene. Detoxification. Patient is a fair historian. Will resume depakote at the dose of 250 mg po bid (valproic acid level is requested). No indication for addition of antipsychotic medication (patient is already on paliperidone 117 mg IM monthly, dispensed on 10/25/19). Side effects/benefits of these medications are reviewed with the patient. Ms Perez grants consent (verbal) to MD. Jimenez.
--- NOTE | 2019-11-09 18:33 | PN ---
S CIWA - CIWA Score Nausea/Vomitin-No Nausea/No Vomiting Muscle Tremors: 3 Anxiety: 4-Mod. Anxious/Guarded Agitation: 2 Paroxysmal Sweats: 1-Minimal Palms Moist Orientation: 0-Oriented Tacttile Disturbances: 0-None Auditory Disturbances: 0-None Visual Disturbances: 1-Very Mild Sensitivity Headache: 0-None Present CIWA-Ar Total Score: 11 S Progress Note (SOAP) Subjective: Anxious, Tremors, Sweating. Objective: Patient A & O X 3, Observed Ambulating on Detox Unit Unassisted. In No Acute Distress. 11/09/19 18:32 Vital Signs Temperature 98.8 F 11/09/19 12:54 Pulse Rate 88 11/09/19 12:54 Respiratory Rate 18 11/09/19 12:54 Blood Pressure 124/78 11/09/19 12:54 O2 Sat by Pulse Oximetry (%) 97 11/09/19 12:54 Laboratory Tests 11/09/19 11/09/19 11/09/19 07:30 07:30 07:30 WBC 7.1 RBC 3.86 Hgb 13.2 Hct 39.3 MCV 101.7 H MCH 34.1 H MCHC 33.5 RDW 14.0 Plt Count 228 MPV 10.0 D Sodium 142 Potassium 4.0 Chloride 111 H Carbon Dioxide 26 Anion Gap 6 L BUN 10.5 Creatinine 0.8 Est GFR (CKD-EPI)AfAm 94.19 Est GFR (CKD-EPI)NonAf 81.27 Random Glucose 81 Calcium 9.2 Total Bilirubin 0.5 AST 14 L ALT 21 Alkaline Phosphatase 54 Total Protein 6.5 Albumin 3.1 L Syphilis Serology Non-reactive HIV Ag/Ab Combo Qual 11/09/19 07:30 WBC RBC Hgb Hct MCV MCH MCHC RDW Plt Count MPV Sodium Potassium Chloride Carbon Dioxide Anion Gap BUN Creatinine Est GFR (CKD-EPI)AfAm Est GFR (CKD-EPI)NonAf Random Glucose Calcium Total Bilirubin AST ALT Alkaline Phosphatase Total Protein Albumin Syphilis Serology HIV Ag/Ab Combo Qual Negative Lab Results noted. Assessment: 11/09/19 18:32 WITHDRAWAL SYMPTOMS. Plan: Continue Detox.
[2019-11-09] MEDS: THIAMINE HCL 100 MG TABLET (FP) PO SCH (22:15)
[2019-11-09] MEDS: DIVALPROEX SODIUM 250 MG TABLET E.C. PO SCH (22:15)
[2019-11-09] MEDS: MONTELUKAST NA 10 MG TABLET PO SCH (22:15)
[2019-11-09] MEDS: MELATONIN 5 MG TABLETS PO SCH (22:15)
[2019-11-10] MEDS: chlordiazePOXIDE HCL 25 MG CAPSULE PO SCH ×4 (05:44→22:14)
[2019-11-10] MEDS: TIOTROPIUM BROMIDE 2.5 MCG (SPIRIVA) RESPIMAT INHALER IH SCH (10:19)
[2019-11-10] MEDS: PRENATAL VITAMINS W/ FOLIC ACID TABLET (FP) PO SCH (10:19)
[2019-11-10] MEDS: BUDESONIDE/FORMETEROL FUMARATE 80/4.5 mcg INHALER IH SCH ×2 (10:19→22:14)
[2019-11-10] MEDS: CHOLECALCIFEROL (VIT D3) 400 UNIT (10 MCG) TABLET PO SCH ×2 (10:19→22:15)
[2019-11-10] MEDS: DIVALPROEX SODIUM 250 MG TABLET E.C. PO SCH ×2 (10:19→22:14)
[2019-11-10] MEDS: NICOTINE 21 MG/24 HOURS TOPICAL PATCH TD SCH (10:19)
[2019-11-10] MEDS: PANTOPRAZOLE 20 MG TABLET PO SCH (10:19)
--- NOTE | 2019-11-10 15:09 | PN ---
S CIWA - CIWA Score Nausea/Vomitin-Mild Nausea/No Vomiting Muscle Tremors: 2 Anxiety: 2 Agitation: 2 Paroxysmal Sweats: 2 Orientation: 0-Oriented Tacttile Disturbances: 0-None Auditory Disturbances: 0-None Visual Disturbances: 0-None Headache: 0-None Present CIWA-Ar Total Score: 9 BHS Progress Note (SOAP) Subjective: Tremor, sweating, interrupted sleep Objective: 11/10/19 15:05 Last Vital Signs Temp Pulse Resp BP Pulse Ox 97.8 F 83 18 125/88 98 11/10/19 12:40 11/10/19 12:40 11/10/19 12:40 11/10/19 12:40 11/10/19 12:40 Elevated b/p: denies htn, not on med Laboratory Tests 11/08/19 11/09/19 11/09/19 15:30 07:30 07:30 WBC 7.1 RBC 3.86 Hgb 13.2 Hct 39.3 MCV 101.7 H MCH 34.1 H MCHC 33.5 RDW 14.0 Plt Count 228 MPV 10.0 D Sodium 142 Potassium 4.0 Chloride 111 H Carbon Dioxide 26 Anion Gap 6 L BUN 10.5 Creatinine 0.8 Est GFR (CKD-EPI)AfAm 94.19 Est GFR (CKD-EPI)NonAf 81.27 Random Glucose 81 Calcium 9.2 Total Bilirubin 0.5 AST 14 L ALT 21 Alkaline Phosphatase 54 Total Protein 6.5 Albumin 3.1 L Syphilis Serology COVID-19 (ALISSA) Not detected HIV Ag/Ab Combo Qual 11/09/19 11/09/19 07:30 07:30 WBC RBC Hgb Hct MCV MCH MCHC RDW Plt Count MPV Sodium Potassium Chloride Carbon Dioxide Anion Gap BUN Creatinine Est GFR (CKD-EPI)AfAm Est GFR (CKD-EPI)NonAf Random Glucose Calcium Total Bilirubin AST ALT Alkaline Phosphatase Total Protein Albumin Syphilis Serology Non-reactive COVID-19 (ALISSA) HIV Ag/Ab Combo Qual Negative Labs reviewed: albumin 3.1 (low) Assessment: 11/10/19 15:08 Withdrawal sxs Noted with hypoalbuminemia Plan: Continue detox Encourage PO water intake Elevated b/p: denies HTN, monitor b/p, consider initiating treatment if warranted Hypoalbuminemia: encourage diet, continue ensure
[2019-11-10] MEDS: MONTELUKAST NA 10 MG TABLET PO SCH (22:14)
[2019-11-10] MEDS: THIAMINE HCL 100 MG TABLET (FP) PO SCH (22:15)
[2019-11-10] MEDS: MELATONIN 5 MG TABLETS PO SCH (22:18)
[2019-11-11] MEDS ORDERED: chlordiazePOXIDE HCL 10 MG CAPSULE PO PRN
[2019-11-11] MEDS: chlordiazePOXIDE HCL 10 MG CAPSULE PO SCH ×4 (05:47→22:12)
[2019-11-11] MEDS: DIVALPROEX SODIUM 250 MG TABLET E.C. PO SCH ×2 (11:08→22:14)
[2019-11-11] MEDS: PRENATAL VITAMINS W/ FOLIC ACID TABLET (FP) PO SCH (11:08)
[2019-11-11] MEDS: NICOTINE 21 MG/24 HOURS TOPICAL PATCH TD SCH (11:08)
[2019-11-11] MEDS: PANTOPRAZOLE 20 MG TABLET PO SCH (11:08)
[2019-11-11] MEDS: CHOLECALCIFEROL (VIT D3) 400 UNIT (10 MCG) TABLET PO SCH ×2 (11:08→22:12)
[2019-11-11] MEDS: BUDESONIDE/FORMETEROL FUMARATE 80/4.5 mcg INHALER IH SCH ×2 (11:09→22:13)
[2019-11-11] MEDS: TIOTROPIUM BROMIDE 2.5 MCG (SPIRIVA) RESPIMAT INHALER IH SCH (11:09)
--- NOTE | 2019-11-11 12:02 | PN ---
[facility] CIWA - CIWA Score Nausea/Vomitin-No Nausea/No Vomiting Muscle Tremors: 2 Anxiety: 2 Agitation: 2 Paroxysmal Sweats: 2 Orientation: 0-Oriented Tacttile Disturbances: 0-None Auditory Disturbances: 0-None Visual Disturbances: 0-None Headache: 0-None Present CIWA-Ar Total Score: 8 BHS Progress Note (SOAP) Subjective: sweats agitation interrupted sleep Objective: 11/11/19 12:01 Vital Signs Temperature 97.3 F L 11/11/19 08:42 Pulse Rate 80 11/11/19 08:42 Respiratory Rate 18 11/11/19 08:42 Blood Pressure 114/78 11/11/19 08:42 O2 Sat by Pulse Oximetry (%) 98 11/11/19 05:41 aaox3 ambulating no acute distress Assessment: 11/11/19 12:01 withdrawals Plan: continue detox increase fluids
[2019-11-11] MEDS: MAGNESIUM HYDROX 2400MG/30ML ORAL SUSPENSION 30 ML CUP PO PRN (18:07)
[2019-11-11] MEDS: THIAMINE HCL 100 MG TABLET (FP) PO SCH (22:11)
[2019-11-11] MEDS: MONTELUKAST NA 10 MG TABLET PO SCH (22:12)
[2019-11-11] MEDS: MELATONIN 5 MG TABLETS PO SCH (22:14)
[2019-11-12] MEDS: chlordiazePOXIDE HCL 10 MG CAPSULE PO SCH ×2 (06:14→17:26)
[2019-11-12] MEDS: PANTOPRAZOLE 20 MG TABLET PO SCH (10:38)
[2019-11-12] MEDS: NICOTINE 21 MG/24 HOURS TOPICAL PATCH TD SCH (10:38)
[2019-11-12] MEDS: CHOLECALCIFEROL (VIT D3) 400 UNIT (10 MCG) TABLET PO SCH ×2 (10:38→21:45)
[2019-11-12] MEDS: PRENATAL VITAMINS W/ FOLIC ACID TABLET (FP) PO SCH (10:38)
[2019-11-12] MEDS: DIVALPROEX SODIUM 250 MG TABLET E.C. PO SCH ×2 (10:38→21:37)
[2019-11-12] MEDS: BUDESONIDE/FORMETEROL FUMARATE 80/4.5 mcg INHALER IH SCH ×2 (10:38→21:41)
[2019-11-12] MEDS: TIOTROPIUM BROMIDE 2.5 MCG (SPIRIVA) RESPIMAT INHALER IH SCH (10:39)
--- NOTE | 2019-11-12 11:24 | PN ---
S CIWA - CIWA Score Nausea/Vomitin-No Nausea/No Vomiting Muscle Tremors: 1-None Visible, but [place] Anxiety: 1-Mildly Anxious Agitation: 0-Normal Activity Paroxysmal Sweats: 2 Orientation: 0-Oriented Tacttile Disturbances: 0-None Auditory Disturbances: 0-None Visual Disturbances: 0-None Headache: 0-None Present CIWA-Ar Total Score: 4 BHS Progress Note (SOAP) Subjective: sweats Objective: 11/12/19 11:24 Vital Signs Temperature 97.3 F L 11/12/19 08:35 Pulse Rate 93 H 11/12/19 08:35 Respiratory Rate 17 11/12/19 08:35 Blood Pressure 101/71 11/12/19 08:35 O2 Sat by Pulse Oximetry (%) 95 11/12/19 08:35 aaox3 ambulating no acute distress Assessment: 11/12/19 11:24 withdrawals Plan: continue detox d/c in am
[2019-11-12] MEDS: DOCUSATE SODIUM 100 MG CAPSULE (FP) PO SCH ×2 (13:24→21:37)
[2019-11-12 17:27] VITALS: TEMP 97.1
[2019-11-12] MEDS: MELATONIN 5 MG TABLETS PO SCH (21:37)
[2019-11-12] MEDS: THIAMINE HCL 100 MG TABLET (FP) PO SCH (21:38)
[2019-11-12] MEDS: MONTELUKAST NA 10 MG TABLET PO SCH (21:38)
[2019-11-13] MEDS ORDERED: chlordiazePOXIDE HCL 10 MG CAPSULE PO ONE (05:00)
[2019-11-13] MEDS: DOCUSATE SODIUM 100 MG CAPSULE (FP) PO SCH (05:58)
[2019-11-13 06:33] VITALS: BP 107/67; PULSE 70
--- NOTE | 2019-11-13 08:35 | DS ---
[facility] Detox Discharge Summary Admission Date: 11/08/19 Discharge Date: 11/13/19 - History Present History: Alcohol Dependence, Cocaine Dependence - Physical Exam Results Vital Signs: Vital Signs Temperature 97.1 F L 11/13/19 05:52 Pulse Rate 70 11/13/19 05:52 Respiratory Rate 18 11/13/19 05:52 Blood Pressure 107/67 11/13/19 05:52 O2 Sat by Pulse Oximetry (%) 97 11/13/19 05:52 Pertinent Admission Physical Exam Findings: Vital Signs Temperature 97.1 F L 11/13/19 05:52 Pulse Rate 70 11/13/19 05:52 Respiratory Rate 18 11/13/19 05:52 Blood Pressure 107/67 11/13/19 05:52 O2 Sat by Pulse Oximetry (%) 97 11/13/19 05:52 Laboratory Tests 11/08/19 11/09/19 11/09/19 15:30 07:30 07:30 WBC 7.1 RBC 3.86 Hgb 13.2 Hct 39.3 MCV 101.7 H MCH 34.1 H MCHC 33.5 RDW 14.0 Plt Count 228 MPV 10.0 D Sodium 142 Potassium 4.0 Chloride 111 H Carbon Dioxide 26 Anion Gap 6 L BUN 10.5 Creatinine 0.8 Est GFR (CKD-EPI)AfAm 94.19 Est GFR (CKD-EPI)NonAf 81.27 Random Glucose 81 Calcium 9.2 Total Bilirubin 0.5 AST 14 L ALT 21 Alkaline Phosphatase 54 Total Protein 6.5 Albumin 3.1 L Syphilis Serology COVID-19 (ALISSA) Not detected HIV Ag/Ab Combo Qual 11/09/19 11/09/19 07:30 07:30 WBC RBC Hgb Hct MCV MCH MCHC RDW Plt Count MPV Sodium Potassium Chloride Carbon Dioxide Anion Gap BUN Creatinine Est GFR (CKD-EPI)AfAm Est GFR (CKD-EPI)NonAf Random Glucose Calcium Total Bilirubin AST ALT Alkaline Phosphatase Total Protein Albumin Syphilis Serology Non-reactive COVID-19 (ALISSA) HIV Ag/Ab Combo Qual Negative aaox3 ambulating no acute distress lungs CTA - Treatment Hospital Course: Detox Protocol Followed, Detoxed Safely, Responded well, Discharged Condition Good, Rehab Referral Accepted - Medication Discharge Medications: Ambulatory Orders Albuterol Sulfate Inhaler - [Ventolin HFA Inhaler -] 2 puff IH PRN 09/06/17 Divalproex [Depakote -] 500 mg PO BID 09/06/17 Budesonide/Formeterol Fumarate [SYMBICORT 160/4.5mcg -] 1 inh PO BID 11/08/19 Cholecalciferol (Vitamin D3) [Vitamin D3 -] 400 unit PO BID 11/08/19 Esomeprazole Magnesium [Nexium 24Hr] 20 mg PO DAILY 11/08/19 Folic Acid - 1 mg PO DAILY 11/08/19 Montelukast Na [Singulair -] 10 mg PO HS 11/08/19 Tiotropium [place] [Spiriva] 1 inh PO DAILY 11/08/19 - Diagnosis (1) Alcohol dependence with uncomplicated withdrawal Current Visit: Yes Status: Chronic (2) Cocaine dependence, uncomplicated Current Visit: Yes Status: Chronic (3) Drug-induced mood disorder Current Visit: Yes Status: Chronic (4) Nicotine dependence Current Visit: Yes Status: Chronic Qualifiers: Nicotine product type: cigarettes Substance use status: uncomplicated Juan J lified Code(s): F17.210 - Nicotine dependence, cigarettes, uncomplicated (5) Schizophrenia Current Visit: Yes Status: Chronic Qualifiers: Schizophrenia type: unspecified Qualified Code(s): F20.9 - Schizophrenia, unspecified (6) Schizoaffective disorder Current Visit: Yes Status: Suspected (7) COPD (chronic obstructive pulmonary disease) with emphysema Current Visit: No Status: Chronic Qualifiers: Emphysema type: unspecified Qualified Code(s): J43.9 - Emphysema, unspecified (8) Former cigarette smoker Current Visit: No Status: Suspected - AMA Did Patient Leave Against Medical Advice: No
[2019-11-13] MEDS: MAGNESIUM HYDROX 2400MG/30ML ORAL SUSPENSION 30 ML CUP PO PRN (09:44)
[2019-11-13] MEDS: PANTOPRAZOLE 20 MG TABLET PO SCH (10:22)
[2019-11-13] MEDS: BUDESONIDE/FORMETEROL FUMARATE 80/4.5 mcg INHALER IH SCH (10:22)
[2019-11-13] MEDS: TIOTROPIUM BROMIDE 2.5 MCG (SPIRIVA) RESPIMAT INHALER IH SCH (10:22)
[2019-11-13] MEDS: NICOTINE 21 MG/24 HOURS TOPICAL PATCH TD SCH (10:22)
[2019-11-13] MEDS: DIVALPROEX SODIUM 250 MG TABLET E.C. PO SCH (10:22)
[2019-11-13] MEDS: PRENATAL VITAMINS W/ FOLIC ACID TABLET (FP) PO SCH (10:22)
[2019-11-13] MEDS: CHOLECALCIFEROL (VIT D3) 400 UNIT (10 MCG) TABLET PO SCH (11:33)
== END 2019-11-13 13:29 | disposition other institution (70) | DRG 774 ==
LOC: YASAS 12:57 → Y6N 15:24
PROVIDERS: ADMIT Allergy & Immunology; ATTEND Allergy & Immunology
PROC: HZ2ZZZZ Detoxification Services for Substance Abuse Treatment (ICD-10-PCS; principal; 2019-11-08)
DX: F10.230 Alcohol dependence with withdrawal, uncomplicated (principal); F14.20 Cocaine dependence, uncomplicated; F17.210 Nicotine dependence, cigarettes, uncomplicated; F19.24 Other psychoactive substance dependence with psychoactive substance-induced mood disorder; F20.9 Schizophrenia, unspecified; J43.9 Emphysema, unspecified; R77.0 Abnormality of albumin; Z88.0 Allergy status to penicillin; Z88.5 Allergy status to narcotic agent; Z91.048 Other nonmedicinal substance allergy status
CPT/HCPCS: 36415; 80053; 85027; 86780; 87389; U0003

== ENCOUNTER 2019-11-13 13:33 | Inpatient (IN) | payer OTHER ==
--- NOTE | 2019-11-13 11:22 | HP ---
[facility] Rehab Assess/Revision - Admission History Ad[facility] to Rehab from[facility] - Findings Detox History & Physical reviewed: Yes Concur with findings: Yes Inpatient Rehab Admission - Rehab Decision to Admit Inpatient rehab admission?: Yes - Initial Determination Are CD services needed?: Yes Free of communicable disease: Yes Not in need of hospitalization: Yes - Rehab Admission Criteria Previous failed treatment: Yes Poor recovery environment: Yes Comorbidities: Yes Lacks judgement: Yes Patient is meeting Inpatient Rehab admission criteria:: Yes
[2019-11-13] MEDS ORDERED: MAGNESIUM CITRATE 300 ML BOTTLE PO PRN (14:37)
[2019-11-13] MEDS ORDERED: MENTHOL/PHENOL 1 EACH UD MM PRN (14:37)
[2019-11-13] MEDS ORDERED: ACETAMINOPHEN 325 MG TABLET (FP) PO PRN (14:37)
[2019-11-13] MEDS ORDERED: MAG HYDROX/AL HYDROX/SIMETH 30 ML UNIT-DOSE CUP PO PRN (14:37)
[2019-11-13] MEDS ORDERED: LOPERAMIDE HCL 2 MG CAPSULE PO PRN (14:37)
[2019-11-13] MEDS ORDERED: IBUPROFEN 400 MG TABLET (FP) PO PRN (14:37)
[2019-11-13] MEDS ORDERED: NICOTINE POLACRILEX 2 MG GUM BUC PRN (14:37)
[2019-11-13] MEDS ORDERED: guaiFENesin 200 MG/10 ML 10 ML UNIT-DOSE CUPS PO PRN (14:37)
[2019-11-13] MEDS ORDERED: MAGNESIUM HYDROX 2400MG/30ML ORAL SUSPENSION 30 ML CUP PO PRN (14:37)
[2019-11-13] MEDS ORDERED: ALBUTEROL SO4 HFA INHALER IH SCH (14:45)
[2019-11-13] MEDS ORDERED: SODIUM PHOSPHATE/NA BIPHOS 133 ML ENEMA RC ONE (15:36)
[2019-11-13] MEDS: MELATONIN 5 MG TABLETS PO SCH (21:22)
[2019-11-13] MEDS: THIAMINE HCL 100 MG TABLET (FP) PO SCH (21:22)
[2019-11-13] MEDS: DIVALPROEX SODIUM 250 MG TABLET E.C. PO SCH (21:23)
[2019-11-13] MEDS: MONTELUKAST NA 10 MG TABLET PO SCH (21:24)
[2019-11-13] MEDS: BUDESONIDE/FORMETEROL FUMARATE 160/4.5 mcg INHALER IH SCH (21:24)
[2019-11-13] MEDS: CHOLECALCIFEROL (VIT D3) 400 UNIT (10 MCG) TABLET PO SCH (21:24)
[2019-11-14] MEDS ORDERED: PT OWN MED DRAWER 7, Y5N ONE ×3 (08:50→18:46)
[2019-11-14] MEDS ORDERED: NICOTINE 7 MG/24 HOURS TOPICAL PATCH TD SCH (10:00)
[2019-11-14] MEDS ORDERED: PATIENT'S OWN MEDICATION (NON-FORMULARY) (Tiotropium Bromide [Spiriva] 1 INH) PO SCH (10:00)
[2019-11-14] MEDS ORDERED: FOLIC ACID 1 MG TABLET (FP) PO SCH (10:00)
[2019-11-14] MEDS: TIOTROPIUM BROMIDE 2.5 MCG (SPIRIVA) RESPIMAT INHALER IH SCH (10:14)
[2019-11-14] MEDS: PRENATAL VITAMINS W/ FOLIC ACID TABLET (FP) PO SCH (10:14)
[2019-11-14] MEDS: DIVALPROEX SODIUM 250 MG TABLET E.C. PO SCH ×2 (10:14→21:24)
[2019-11-14] MEDS: BUDESONIDE/FORMETEROL FUMARATE 160/4.5 mcg INHALER IH SCH ×2 (10:15→21:26)
[2019-11-14] MEDS: CHOLECALCIFEROL (VIT D3) 400 UNIT (10 MCG) TABLET PO SCH ×2 (10:17→21:24)
[2019-11-14] MEDS: POLYETHYLENE GLYCOL 3350 119 GM BTL PO SCH ×2 (14:22→21:24)
[2019-11-14] MEDS: CARBAMIDE PEROXIDE 6.5% OTIC 15 ML BOTTLE AD SCH ×2 (14:25→21:26)
[2019-11-14] MEDS: DOCUSATE SODIUM 100 MG CAPSULE (FP) PO SCH ×2 (14:26→21:23)
[2019-11-14] MEDS: THIAMINE HCL 100 MG TABLET (FP) PO SCH (21:22)
[2019-11-14] MEDS: MELATONIN 5 MG TABLETS PO SCH (21:22)
[2019-11-14] MEDS: MONTELUKAST NA 10 MG TABLET PO SCH (21:23)
[2019-11-15] MEDS: hydrOXYzine PAMOATE 25 MG CAPSULE (FP) PO PRN ×2 (00:32→10:22)
[2019-11-15] MEDS: DOCUSATE SODIUM 100 MG CAPSULE (FP) PO SCH ×3 (05:59→21:24)
[2019-11-15] MEDS ORDERED: PT OWN MED DRAWER 7, Y5N ONE ×3 (08:55→18:46)
[2019-11-15] MEDS: DIVALPROEX SODIUM 250 MG TABLET E.C. PO SCH (10:21)
[2019-11-15] MEDS: PRENATAL VITAMINS W/ FOLIC ACID TABLET (FP) PO SCH (10:22)
[2019-11-15] MEDS: POLYETHYLENE GLYCOL 3350 119 GM BTL PO SCH ×2 (10:22→22:08)
[2019-11-15] MEDS: CARBAMIDE PEROXIDE 6.5% OTIC 15 ML BOTTLE AD SCH ×2 (10:22→21:26)
[2019-11-15] MEDS: TIOTROPIUM BROMIDE 2.5 MCG (SPIRIVA) RESPIMAT INHALER IH SCH (10:24)
[2019-11-15] MEDS: BUDESONIDE/FORMETEROL FUMARATE 160/4.5 mcg INHALER IH SCH ×2 (10:24→21:27)
[2019-11-15] MEDS: CHOLECALCIFEROL (VIT D3) 400 UNIT (10 MCG) TABLET PO SCH ×2 (10:53→21:27)
--- NOTE | 2019-11-15 17:07 | CONSULT ---
[facility] Psychiatric Consult - Data Date of interview: 11/15/19 Admission source: [facility] Identifying data: Detoxification completed at [address] [place] [address]. Patient is now entering the rehabilitation phase of treatment at [address] for maintenance of sobriety + management of co-morbid schizoaffective disorder. Ms Perez is a 59 y/o AA female presenting with JANNETH issues : alcohol, crack/cocaine, nicotine. Patient is , a mother of three, domiciled, unemployed and supported on SSI benefits. Substance Abuse History: Discussed with the patient. JANNETH profile as follows : Smoking history: Current every day smoker. Have you smoked in the past 12 hermilo hs: Yes. Aproximately how many cigarettes per day: 20. Hx Chewing Tobacco Use: No. Initiated information on smoking cessation: Yes. 'Breaking Loose' booklet given: 11/08/19. - Substances abused. Alcohol. Substance route: Oral. Frequency: Daily. Amount used: 1 PINT VODKA. Age of first use: 14. Date of last use: 11/08/19. Crack. Substance route: Smoking. Frequency: Daily. Amount used: $50. Age of first use: 22. Date of last use: 11/07/19. Medical History: Medical profile is remarkable for emphysema, GERD, COPD, bronchial asthma, chronic lumbar pain and history of surgeries (appendectomy + sections + laparotomy + cholecystectomy). Psychiatric History: No changes since my examination of 11/09/19 (see note for details). History of multiple psychiatric hospitalizations (mostly at institutions located in [place], [place] : [facility], [facility], [facility]). Diagnosed with : schizophrenia and bipolar disorder." Medications reported by the patient consist of depakote + monthly injections of " risperdal 117 mg " (last injection : 10/25/19, as per self-report). Ms Perez denies history of suicide attempts. Physical/Sexual Abuse/Trauma History: Patient denies history of abuse in this interview. Additional Comment: Urine drug screen results: GUIDO-Cocaine. Noted on dmission to the detoxification unit. Mental Status Exam - Mental Status Exam Alert and Oriented to: Time, Place, Person Cognitive Function: Good Patient Appearance: Well Groomed Mood: Hopeful, Euthymic Affect: Appropriate, Normal Range Patient Behavior: Appropriate, Cooperative Speech Pattern: Clear, Appropriate Voice Loudness: Normal Thought Process: Intact, Goal Oriented Thought Disorder: Not Present Hallucinations: Denies Suicidal Ideation: Denies Homicidal Ideation: Denies Insight/Judgement: Fair Sleep: Well Appetite: Good Gait/Station: Normal Psychiatric Findings - Problem List ([place] 1, 2,3) (1) Alcohol use disorder Current Visit: Yes Status: Chronic (2) Cocaine dependence, uncomplicated Current Visit: Yes Status: Chronic (3) Nicotine dependence Current Visit: Yes Status: Chronic Qualifiers: Nicotine product type: cigarettes Substance use status: uncomplicated Qualified Code(s): F17.210 - Nicotine dependence, cigarettes, uncomplicated (4) Schizoaffective disorder Current Visit: Yes Status: Chronic - Initial Treatment Plan Initial Treatment Plan: Psychoeducation. Support. Sleep hygiene. Rehabilitation. Motivational counseling. Patient maintains that her last injection of Invega 117 mg IM was dispensed at [facility] mental health clinic on 10/25/19 (she is a clear and reliable historian). Double End Chucking Machine Operator recommends that dose be verified via contact with [facility] providers (already done). See DEN Baird's note of 11/15/19 for details. Depakote level = 42 (sub-therapeutic). Dose is increased to 500 mg po daily + 500 mg po hs. Side effects/benefits revisited with the patient in today's session. Ms Perez granted verbal consent to MD. Jimenez.
[2019-11-15] MEDS: MONTELUKAST NA 10 MG TABLET PO SCH (21:24)
[2019-11-15] MEDS: MELATONIN 5 MG TABLETS PO SCH (21:24)
[2019-11-15] MEDS: P-EPHED 60MG/TRIPROLIDI 2.5MG TABLET PO PRN (21:25)
[2019-11-15] MEDS: DIVALPROEX SODIUM 500 MG TABLET E.C. PO SCH (21:27)
[2019-11-15] MEDS: THIAMINE HCL 100 MG TABLET (FP) PO SCH (21:27)
[2019-11-16] MEDS: DOCUSATE SODIUM 100 MG CAPSULE (FP) PO SCH ×3 (06:11→21:28)
[2019-11-16] MEDS ORDERED: PT OWN MED DRAWER 7, Y5N ONE ×3 (08:49→18:49)
[2019-11-16] MEDS ORDERED: DIVALPROEX SODIUM 250 MG TABLET E.C. PO SCH (10:00)
[2019-11-16] MEDS: CHOLECALCIFEROL (VIT D3) 400 UNIT (10 MCG) TABLET PO SCH ×2 (10:20→21:28)
[2019-11-16] MEDS: DIVALPROEX SODIUM 500 MG TABLET E.C. PO SCH ×2 (10:20→21:28)
[2019-11-16] MEDS: PRENATAL VITAMINS W/ FOLIC ACID TABLET (FP) PO SCH (10:20)
[2019-11-16] MEDS: CARBAMIDE PEROXIDE 6.5% OTIC 15 ML BOTTLE AD SCH ×2 (10:22→21:30)
[2019-11-16] MEDS: POLYETHYLENE GLYCOL 3350 119 GM BTL PO SCH ×2 (10:22→21:28)
[2019-11-16] MEDS: TIOTROPIUM BROMIDE 2.5 MCG (SPIRIVA) RESPIMAT INHALER IH SCH (10:24)
[2019-11-16] MEDS: BUDESONIDE/FORMETEROL FUMARATE 160/4.5 mcg INHALER IH SCH ×2 (10:24→21:30)
[2019-11-16] MEDS: MELATONIN 5 MG TABLETS PO SCH (21:28)
[2019-11-16] MEDS: THIAMINE HCL 100 MG TABLET (FP) PO SCH (21:28)
[2019-11-16] MEDS: MONTELUKAST NA 10 MG TABLET PO SCH (21:28)
[2019-11-16] MEDS: P-EPHED 60MG/TRIPROLIDI 2.5MG TABLET PO PRN (21:29)
[2019-11-17] MEDS: DOCUSATE SODIUM 100 MG CAPSULE (FP) PO SCH ×3 (06:16→21:14)
[2019-11-17] MEDS: PRENATAL VITAMINS W/ FOLIC ACID TABLET (FP) PO SCH (09:36)
[2019-11-17] MEDS: TIOTROPIUM BROMIDE 2.5 MCG (SPIRIVA) RESPIMAT INHALER IH SCH (09:36)
[2019-11-17] MEDS: CHOLECALCIFEROL (VIT D3) 400 UNIT (10 MCG) TABLET PO SCH ×2 (09:36→21:15)
[2019-11-17] MEDS: BUDESONIDE/FORMETEROL FUMARATE 160/4.5 mcg INHALER IH SCH ×2 (09:36→21:15)
[2019-11-17] MEDS: DIVALPROEX SODIUM 500 MG TABLET E.C. PO SCH ×2 (09:36→21:14)
[2019-11-17] MEDS: POLYETHYLENE GLYCOL 3350 119 GM BTL PO SCH ×2 (09:37→21:15)
[2019-11-17] MEDS: CARBAMIDE PEROXIDE 6.5% OTIC 15 ML BOTTLE AD SCH ×2 (09:39→21:17)
[2019-11-17] MEDS: MONTELUKAST NA 10 MG TABLET PO SCH (21:14)
[2019-11-17] MEDS: MELATONIN 5 MG TABLETS PO SCH (21:14)
[2019-11-17] MEDS: THIAMINE HCL 100 MG TABLET (FP) PO SCH (21:14)
[2019-11-17] MEDS ORDERED: PT OWN MED DRAWER 7, Y5N ONE (21:16)
[2019-11-18] MEDS: DOCUSATE SODIUM 100 MG CAPSULE (FP) PO SCH ×3 (06:05→21:23)
[2019-11-18] MEDS ORDERED: PT OWN MED DRAWER 7, Y5N ONE ×4 (09:02→21:00)
[2019-11-18] MEDS: PRENATAL VITAMINS W/ FOLIC ACID TABLET (FP) PO SCH (11:01)
[2019-11-18] MEDS: CHOLECALCIFEROL (VIT D3) 400 UNIT (10 MCG) TABLET PO SCH ×2 (11:02→21:23)
[2019-11-18] MEDS: BUDESONIDE/FORMETEROL FUMARATE 160/4.5 mcg INHALER IH SCH ×2 (11:02→21:24)
[2019-11-18] MEDS: POLYETHYLENE GLYCOL 3350 119 GM BTL PO SCH ×2 (11:02→21:23)
[2019-11-18] MEDS: TIOTROPIUM BROMIDE 2.5 MCG (SPIRIVA) RESPIMAT INHALER IH SCH (11:02)
[2019-11-18] MEDS: CARBAMIDE PEROXIDE 6.5% OTIC 15 ML BOTTLE AD SCH ×2 (11:04→21:25)
[2019-11-18] MEDS: DIVALPROEX SODIUM 500 MG TABLET E.C. PO SCH ×2 (11:06→21:23)
[2019-11-18] MEDS: MELATONIN 5 MG TABLETS PO SCH (21:23)
[2019-11-18] MEDS: MONTELUKAST NA 10 MG TABLET PO SCH (21:23)
[2019-11-18] MEDS: THIAMINE HCL 100 MG TABLET (FP) PO SCH (21:23)
[2019-11-19] MEDS: DOCUSATE SODIUM 100 MG CAPSULE (FP) PO SCH ×3 (06:50→21:18)
[2019-11-19] MEDS: TIOTROPIUM BROMIDE 2.5 MCG (SPIRIVA) RESPIMAT INHALER IH SCH (10:02)
[2019-11-19] MEDS: BUDESONIDE/FORMETEROL FUMARATE 160/4.5 mcg INHALER IH SCH ×2 (10:02→21:18)
[2019-11-19] MEDS: PRENATAL VITAMINS W/ FOLIC ACID TABLET (FP) PO SCH (10:02)
[2019-11-19] MEDS: POLYETHYLENE GLYCOL 3350 119 GM BTL PO SCH ×2 (10:02→21:18)
[2019-11-19] MEDS: DIVALPROEX SODIUM 500 MG TABLET E.C. PO SCH ×2 (10:03→21:18)
[2019-11-19] MEDS ORDERED: PT OWN MED DRAWER 7, Y5N ONE ×3 (10:04→21:19)
[2019-11-19] MEDS: CARBAMIDE PEROXIDE 6.5% OTIC 15 ML BOTTLE AD SCH ×2 (10:04→21:20)
[2019-11-19] MEDS: CHOLECALCIFEROL (VIT D3) 400 UNIT (10 MCG) TABLET PO SCH ×2 (10:05→21:20)
[2019-11-19] MEDS: THIAMINE HCL 100 MG TABLET (FP) PO SCH (21:18)
[2019-11-19] MEDS: MELATONIN 5 MG TABLETS PO SCH (21:18)
[2019-11-19] MEDS: MONTELUKAST NA 10 MG TABLET PO SCH (21:18)
[2019-11-20] MEDS: DOCUSATE SODIUM 100 MG CAPSULE (FP) PO SCH ×3 (05:58→21:25)
[2019-11-20] MEDS: PRENATAL VITAMINS W/ FOLIC ACID TABLET (FP) PO SCH (09:48)
[2019-11-20] MEDS: CARBAMIDE PEROXIDE 6.5% OTIC 15 ML BOTTLE AD SCH ×2 (09:48→21:26)
[2019-11-20] MEDS: DIVALPROEX SODIUM 500 MG TABLET E.C. PO SCH ×2 (09:49→21:25)
[2019-11-20] MEDS: BUDESONIDE/FORMETEROL FUMARATE 160/4.5 mcg INHALER IH SCH ×2 (09:49→21:27)
[2019-11-20] MEDS: TIOTROPIUM BROMIDE 2.5 MCG (SPIRIVA) RESPIMAT INHALER IH SCH (09:49)
[2019-11-20] MEDS: CHOLECALCIFEROL (VIT D3) 400 UNIT (10 MCG) TABLET PO SCH ×2 (09:51→21:25)
[2019-11-20] MEDS ORDERED: PT OWN MED DRAWER 7, Y5N ONE ×2 (09:52→18:39)
[2019-11-20] MEDS: POLYETHYLENE GLYCOL 3350 119 GM BTL PO SCH ×2 (10:38→21:25)
[2019-11-20] MEDS: THIAMINE HCL 100 MG TABLET (FP) PO SCH (21:25)
[2019-11-20] MEDS: MONTELUKAST NA 10 MG TABLET PO SCH (21:25)
[2019-11-20] MEDS: MELATONIN 5 MG TABLETS PO SCH (21:25)
[2019-11-21] MEDS: DOCUSATE SODIUM 100 MG CAPSULE (FP) PO SCH ×3 (06:31→21:41)
[2019-11-21] MEDS: TIOTROPIUM BROMIDE 2.5 MCG (SPIRIVA) RESPIMAT INHALER IH SCH (10:33)
[2019-11-21] MEDS: POLYETHYLENE GLYCOL 3350 119 GM BTL PO SCH ×2 (10:33→21:49)
[2019-11-21] MEDS: CARBAMIDE PEROXIDE 6.5% OTIC 15 ML BOTTLE AD SCH ×2 (10:33→21:41)
[2019-11-21] MEDS: PRENATAL VITAMINS W/ FOLIC ACID TABLET (FP) PO SCH (10:33)
[2019-11-21] MEDS: DIVALPROEX SODIUM 500 MG TABLET E.C. PO SCH ×2 (10:33→21:41)
[2019-11-21] MEDS: BUDESONIDE/FORMETEROL FUMARATE 160/4.5 mcg INHALER IH SCH ×2 (10:33→21:44)
[2019-11-21] MEDS: CHOLECALCIFEROL (VIT D3) 400 UNIT (10 MCG) TABLET PO SCH ×2 (10:34→21:42)
[2019-11-21] MEDS ORDERED: PT OWN MED DRAWER 7, Y5N ONE (18:45)
[2019-11-21] MEDS: THIAMINE HCL 100 MG TABLET (FP) PO SCH (21:41)
[2019-11-21] MEDS: MONTELUKAST NA 10 MG TABLET PO SCH (21:41)
[2019-11-21] MEDS: MELATONIN 5 MG TABLETS PO SCH (21:42)
[2019-11-22] MEDS: DOCUSATE SODIUM 100 MG CAPSULE (FP) PO SCH ×3 (05:51→21:50)
[2019-11-22] MEDS: P-EPHED 60MG/TRIPROLIDI 2.5MG TABLET PO PRN (06:25)
[2019-11-22] MEDS ORDERED: PT OWN MED DRAWER 7, Y5N ONE (09:05)
[2019-11-22] MEDS: POLYETHYLENE GLYCOL 3350 119 GM BTL PO SCH ×2 (10:38→21:50)
[2019-11-22] MEDS: PRENATAL VITAMINS W/ FOLIC ACID TABLET (FP) PO SCH (10:38)
[2019-11-22] MEDS: DIVALPROEX SODIUM 500 MG TABLET E.C. PO SCH ×2 (10:38→21:47)
[2019-11-22] MEDS: CHOLECALCIFEROL (VIT D3) 400 UNIT (10 MCG) TABLET PO SCH ×2 (10:38→21:48)
[2019-11-22] MEDS: BUDESONIDE/FORMETEROL FUMARATE 160/4.5 mcg INHALER IH SCH ×2 (10:40→21:47)
[2019-11-22] MEDS: TIOTROPIUM BROMIDE 2.5 MCG (SPIRIVA) RESPIMAT INHALER IH SCH (10:40)
[2019-11-22] MEDS: CARBAMIDE PEROXIDE 6.5% OTIC 15 ML BOTTLE AD SCH ×2 (10:47→21:50)
[2019-11-22] MEDS: THIAMINE HCL 100 MG TABLET (FP) PO SCH (21:47)
[2019-11-22] MEDS: MONTELUKAST NA 10 MG TABLET PO SCH (21:47)
[2019-11-22] MEDS: MELATONIN 5 MG TABLETS PO SCH (21:49)
[2019-11-23] MEDS: DOCUSATE SODIUM 100 MG CAPSULE (FP) PO SCH ×3 (06:05→21:25)
[2019-11-23] MEDS: PRENATAL VITAMINS W/ FOLIC ACID TABLET (FP) PO SCH (09:34)
[2019-11-23] MEDS: POLYETHYLENE GLYCOL 3350 119 GM BTL PO SCH ×2 (09:34→21:28)
[2019-11-23] MEDS: DIVALPROEX SODIUM 500 MG TABLET E.C. PO SCH ×2 (09:35→21:26)
[2019-11-23] MEDS: CARBAMIDE PEROXIDE 6.5% OTIC 15 ML BOTTLE AD SCH ×2 (09:35→21:28)
[2019-11-23] MEDS: TIOTROPIUM BROMIDE 2.5 MCG (SPIRIVA) RESPIMAT INHALER IH SCH (09:36)
[2019-11-23] MEDS: BUDESONIDE/FORMETEROL FUMARATE 160/4.5 mcg INHALER IH SCH ×2 (09:36→21:25)
[2019-11-23] MEDS: CHOLECALCIFEROL (VIT D3) 400 UNIT (10 MCG) TABLET PO SCH ×2 (09:37→21:56)
[2019-11-23] MEDS ORDERED: PT OWN MED DRAWER 7, Y5N ONE (19:33)
[2019-11-23] MEDS: MONTELUKAST NA 10 MG TABLET PO SCH (21:25)
[2019-11-23] MEDS: MELATONIN 5 MG TABLETS PO SCH (21:25)
[2019-11-23] MEDS: THIAMINE HCL 100 MG TABLET (FP) PO SCH (21:25)
[2019-11-24] MEDS: DOCUSATE SODIUM 100 MG CAPSULE (FP) PO SCH ×4 (05:49→22:32)
[2019-11-24] MEDS ORDERED: PT OWN MED DRAWER 7, Y5N ONE (09:39)
[2019-11-24] MEDS: PRENATAL VITAMINS W/ FOLIC ACID TABLET (FP) PO SCH (10:20)
[2019-11-24] MEDS: DIVALPROEX SODIUM 500 MG TABLET E.C. PO SCH ×3 (10:20→22:34)
[2019-11-24] MEDS: BUDESONIDE/FORMETEROL FUMARATE 160/4.5 mcg INHALER IH SCH ×2 (10:21→22:22)
[2019-11-24] MEDS: CARBAMIDE PEROXIDE 6.5% OTIC 15 ML BOTTLE AD SCH ×2 (10:21→22:22)
[2019-11-24] MEDS: CHOLECALCIFEROL (VIT D3) 400 UNIT (10 MCG) TABLET PO SCH ×3 (10:21→22:36)
[2019-11-24] MEDS: POLYETHYLENE GLYCOL 3350 119 GM BTL PO SCH ×2 (10:21→22:22)
[2019-11-24] MEDS: TIOTROPIUM BROMIDE 2.5 MCG (SPIRIVA) RESPIMAT INHALER IH SCH (10:21)
[2019-11-24] MEDS: MELATONIN 5 MG TABLETS PO SCH ×2 (22:22→22:34)
[2019-11-24] MEDS: THIAMINE HCL 100 MG TABLET (FP) PO SCH ×2 (22:22→22:33)
[2019-11-24] MEDS: MONTELUKAST NA 10 MG TABLET PO SCH ×2 (22:22→22:34)
[2019-11-24] MEDS: hydrOXYzine PAMOATE 25 MG CAPSULE (FP) PO PRN (22:35)
[2019-11-25] MEDS: DOCUSATE SODIUM 100 MG CAPSULE (FP) PO SCH ×3 (06:15→21:46)
[2019-11-25] MEDS: POLYETHYLENE GLYCOL 3350 119 GM BTL PO SCH ×2 (10:36→21:47)
[2019-11-25] MEDS: PRENATAL VITAMINS W/ FOLIC ACID TABLET (FP) PO SCH (10:36)
[2019-11-25] MEDS: hydrOXYzine PAMOATE 25 MG CAPSULE (FP) PO PRN ×2 (10:36→21:46)
[2019-11-25] MEDS: DIVALPROEX SODIUM 500 MG TABLET E.C. PO SCH ×2 (10:37→21:46)
[2019-11-25] MEDS: CARBAMIDE PEROXIDE 6.5% OTIC 15 ML BOTTLE AD SCH ×2 (10:37→21:48)
[2019-11-25] MEDS: CHOLECALCIFEROL (VIT D3) 400 UNIT (10 MCG) TABLET PO SCH ×2 (10:37→21:47)
[2019-11-25] MEDS: TIOTROPIUM BROMIDE 2.5 MCG (SPIRIVA) RESPIMAT INHALER IH SCH (10:38)
[2019-11-25] MEDS: BUDESONIDE/FORMETEROL FUMARATE 160/4.5 mcg INHALER IH SCH ×2 (10:38→21:47)
--- NOTE | 2019-11-25 14:26 | PN ---
[facility] Progress Note Note: Psychiatry Attending's note (follow-up) : Case discussed with pharmacist, Debbie Gruber. At extension [phone]. Issue : invega 117 mg injection. Patient is due for her monthly injection. Confirmed. Refer to DEN Baird of 11/15/19 for details. Medication is not in [facility] formulary. Plumbing Service Technician is waiting for medication approval (by medical affairs specialist). Dr Reynolds is contacted via telephone (not available at this time). Psychiatry-Liaison psychiatrist will follow in AM.
[2019-11-25] MEDS: THIAMINE HCL 100 MG TABLET (FP) PO SCH (21:46)
[2019-11-25] MEDS: MONTELUKAST NA 10 MG TABLET PO SCH (21:46)
[2019-11-25] MEDS: MELATONIN 5 MG TABLETS PO SCH (21:48)
[2019-11-26] MEDS: DOCUSATE SODIUM 100 MG CAPSULE (FP) PO SCH ×3 (06:13→21:37)
--- NOTE | 2019-11-26 08:25 | PN ---
[facility] Progress Note Note: Patient is scheduled for discharge tomorrow. Script for 30 days suply of Depakote 500 mg/bid will be electronically transmitted to [facility], [facility] [place] [address]
[2019-11-26] MEDS: CARBAMIDE PEROXIDE 6.5% OTIC 15 ML BOTTLE AD SCH ×2 (09:49→21:36)
[2019-11-26] MEDS: DIVALPROEX SODIUM 500 MG TABLET E.C. PO SCH ×2 (09:50→21:37)
[2019-11-26] MEDS: PRENATAL VITAMINS W/ FOLIC ACID TABLET (FP) PO SCH (09:50)
[2019-11-26] MEDS: CHOLECALCIFEROL (VIT D3) 400 UNIT (10 MCG) TABLET PO SCH ×2 (09:50→21:36)
[2019-11-26] MEDS: hydrOXYzine PAMOATE 25 MG CAPSULE (FP) PO PRN ×3 (09:50→21:37)
[2019-11-26] MEDS: BUDESONIDE/FORMETEROL FUMARATE 160/4.5 mcg INHALER IH SCH ×2 (09:51→21:37)
[2019-11-26] MEDS: POLYETHYLENE GLYCOL 3350 119 GM BTL PO SCH ×2 (09:51→21:37)
[2019-11-26] MEDS: TIOTROPIUM BROMIDE 2.5 MCG (SPIRIVA) RESPIMAT INHALER IH SCH (09:51)
--- NOTE | 2019-11-26 10:52 | PN ---
S Progress Note Note: Pt scheduled to be discharged in the morning but psych request to hold pt for a day so pt may receive her Invega Injection expected to be available after today. Vital Signs - 24 hr 11/25/19 11/25/19 11/26/19 14:12 20:27 06:14 Temperature 98.0 F 97.8 F Pulse Rate 77 Respiratory 18 Rate Blood Pressure 114/81 O2 Sat by Pulse 95 95 98 Oximetry (%)
--- NOTE | 2019-11-26 11:16 | PN ---
[facility] Progress Note Note: Psychiatry Attending's note (off service) : Waitstaff, Dr Nobles, is out sick today. Case discussed with medical or surgical instrument maker, Dr Reynolds. Via telephone. Issue : paliperidone injection. Dose confirmed by [facility] psychiatrist, Dr Dotson. From [facility] ([phone]). See DEN Baird's note (11/15/19) for details. Discussed today with pharmacist Debbie Gruber. By telephone [phone]. Order transmitted. One injection of Invega 117 mg/IM : approved today. Medication will be available tomorrow. Discharge deferred. In order for patient to be medicated before return to community. Of note : this marketing writer has made several attempts to contact Dr Dotson. At [phone] and [phone]. Discussed, via telephone, with [facility] nurse Philomena Brown.
[2019-11-26] MEDS ORDERED: PT OWN MED DRAWER 7, Y5N ONE (18:51)
[2019-11-26] MEDS: MELATONIN 5 MG TABLETS PO SCH (21:36)
[2019-11-26] MEDS: MONTELUKAST NA 10 MG TABLET PO SCH (21:36)
[2019-11-26] MEDS: THIAMINE HCL 100 MG TABLET (FP) PO SCH (21:37)
[2019-11-27] MEDS: DOCUSATE SODIUM 100 MG CAPSULE (FP) PO SCH (05:56)
[2019-11-27 07:10] VITALS: BP 107/72; PULSE 81; TEMP 97.5
[2019-11-27] MEDS: CARBAMIDE PEROXIDE 6.5% OTIC 15 ML BOTTLE AD SCH (09:56)
[2019-11-27] MEDS: DIVALPROEX SODIUM 500 MG TABLET E.C. PO SCH (09:56)
[2019-11-27] MEDS: PRENATAL VITAMINS W/ FOLIC ACID TABLET (FP) PO SCH (09:56)
[2019-11-27] MEDS: CHOLECALCIFEROL (VIT D3) 400 UNIT (10 MCG) TABLET PO SCH (09:56)
[2019-11-27] MEDS: POLYETHYLENE GLYCOL 3350 119 GM BTL PO SCH (09:57)
[2019-11-27] MEDS: BUDESONIDE/FORMETEROL FUMARATE 160/4.5 mcg INHALER IH SCH (09:58)
[2019-11-27] MEDS: TIOTROPIUM BROMIDE 2.5 MCG (SPIRIVA) RESPIMAT INHALER IH SCH (09:58)
[2019-11-27] MEDS ORDERED: PALIPERIDONE PALMITATE (INVEGA) 117 MG/0.75 ML SYRINGE IM ONE (12:00)
--- NOTE | 2019-11-27 14:43 | DS ---
[facility] Rehab Discharge Summary - [facility] Rehab Discharge Summary Admission Date: 11/13/19 Discharge Date: 11/27/19 - History Present History: Alcohol dependence, Cocaine dependence Pertinent Past History: Patient is a 59 year old female with history of COPD, bipolar disorder, alcohol use disorder, cocaine use disorder, and nicotine dependence, bipolar disorder, presents here for rehab. Last detox here was completed on 09/08/2017. PMH: COPD, asthma, chronic low back pain PSH: appendectomy, c- section, laparotomy, cholecystectomy Psych: bipolar disorder Social: lives in [facility], alone. Legal: Denies - Discharge Physical Exam Vital Signs: Vital Signs Temperature 97.5 F L 11/27/19 05:54 Pulse Rate 81 11/27/19 05:54 Respiratory Rate 18 11/27/19 05:54 Blood Pressure 107/72 11/27/19 05:54 O2 Sat by Pulse Oximetry (%) 97 11/27/19 05:54 Pertinent Admission Physical Exam Findings: Physical General Appearance: No apparent distress HEENTM: Normocephalic, ISACC Respiratory: No Respiratory Distress, No Accessory Muscle Use Neck: Supple Abdominal: +BS Musculoskeletal: full ROM, steady gait Neurological: envelope addresser II-XII intact, Motor Strength 5/5 - Treatment Discharge Condition: Outpatient referral accepted (Patient will go to [facility]. Medically stable for discharge.) Hospital Course: Patient attended groups, had 1:1 with her counselor, was seen by the psychiatric service. She was adherent to her medication regimen and treatment plan. She had no acute or urgent medical problems while in rehab. - Medication Discharge Medications: Ambulatory Orders Albuterol Sulfate Inhaler - [Ventolin HFA Inhaler -] 2 puff IH PRN 09/06/17 Divalproex [Depakote -] 500 mg PO BID 09/06/17 Budesonide/Formeterol Fumarate [SYMBICORT 160/4.5mcg -] 1 inh PO BID 11/08/19 Cholecalciferol (Vitamin D3) [Vitamin D3 -] 400 unit PO BID 11/08/19 Esomeprazole Magnesium [Nexium 24Hr] 20 mg PO DAILY 11/08/19 Folic Acid - 1 mg PO DAILY 11/08/19 Montelukast Na [Singulair -] 10 mg PO HS 07/31/20 Tiotropium [place] [Spiriva] 1 inh PO DAILY 11/08/19 Divalproex [Depakote -] 500 mg PO DAILY #30 tablet.ec 11/26/19 Divalproex [Depakote -] 500 mg PO HS #30 tablet.ec 11/26/19 - Medication-Assisted Treatment (MAT) Medication-Assisted Treatment (MAT): No - Discharge Instructions Diet, activity, other medical instructions: Diet: As tolerated Activity: as tolerated Other medical instructions: Please follow up with aftercare instructions. - AMA Did Patient Leave Against Medical Advice: No
== END 2019-11-27 13:00 | disposition home or self-care (01) | DRG 772 ==
LOC: YASAS 13:33 → Y3W 13:39
PROVIDERS: ADMIT Allergy & Immunology; ATTEND Allergy & Immunology
PROC: HZ42ZZZ Group Counseling for Substance Abuse Treatment, Cognitive-Behavioral (ICD-10-PCS; principal; 2019-11-13)
DX: F10.20 Alcohol dependence, uncomplicated (principal); F14.20 Cocaine dependence, uncomplicated; F17.210 Nicotine dependence, cigarettes, uncomplicated; F25.9 Schizoaffective disorder, unspecified; J44.9 Chronic obstructive pulmonary disease, unspecified; M54.5 Low back pain; G89.29 Other chronic pain; Z90.49 Acquired absence of other specified parts of digestive tract; Z98.890 Other specified postprocedural states; Z88.0 Allergy status to penicillin; Z88.5 Allergy status to narcotic agent; Z91.048 Other nonmedicinal substance allergy status
CPT/HCPCS: 80164; J2426